=== PATIENT | male | born 1955 | race Caucasian/White ===

== ENCOUNTER 2023-07-28 09:24 | Day surgery (SDC) | payer MEDICARE, SELFPAY ==
[2023-07-13 14:40] VITALS: BMI 32.4
[2023-07-28 10:25] VITALS: BP 146/84; PULSE 79; RESP 20; TEMP 36.7; O2SAT 100
--- NOTE | 2023-07-28 10:49 | WPDANESEPPF ---
Anes - Initial Pre Proc Eval Procedure: Operation Date: 07/28/23 11:30 Proposed Procedures p Esophagogastroduodenoscopy - Stanton Pedraza MD Date/Time: 07/28/23 10:49 Surgeon: Stanton Pedraza MD Pre Op Diagnosis: Dysphagia Patient Data Age: 68 Gender: M Height: 1.83 m Weight: 108.409 kg Allergies Allergy/AdvReac Type Severity Reaction Status Date / Time No Known Allergies Allergy Verified 07/19/23 10:04 Home Medications Medication Instructions Recorded Confirmed Type cetirizine 10 mg tablet (Zyrtec) 10 mg PO DAILY PRN Allergy Symptoms 10/30/19 07/19/23 History glucosamine HCl 500 mg tablet 500 mg PO DAILY 10/30/19 07/19/23 History multivitamin 1 tablet PO DAILY 10/30/19 07/19/23 History vitamin B complex (B 1 tablet PO DAILY 10/30/19 07/19/23 History Complex-Vitamin B12 tablet) gabapentin 300 mg capsule See Rx Instructions .Route 05/10/22 07/19/23 Rx .COMPLEX #90 caps hydrocortisone 2.5 % topical See Rx Instructions .Route 07/19/22 07/19/23 Rx ointment .COMPLEX #454 grams duloxetine 60 mg capsule,delayed 60 mg PO DAILY #90 caps 06/14/23 07/19/23 Rx release (Cymbalta) warfarin 7.5 mg tablet See Rx Instructions .Route 06/28/23 07/19/23 Rx .COMPLEX #90 tabs atorvastatin 20 mg tablet See Rx Instructions .Route 07/05/23 07/19/23 Rx .COMPLEX #180 tabs ferrous sulfate 325 mg (65 mg 325 mg PO DAILY 07/05/23 07/19/23 History iron) tablet magnesium oxide 400 mg (241.3 mg 400 mg PO DAILY 07/05/23 07/19/23 History magnesium) tablet pantoprazole 40 mg tablet,delayed 40 mg PO QAM #90 tabs 07/05/23 07/19/23 Rx release zinc gluconate 30 mg tablet 30 mg PO DAILY 07/05/23 07/19/23 History Patient hx anesthesia problems: none Family hx anesthesia problems: none Results Review: All pre-operative results and documents have been reviewed as part of the pre-operative evaluation. 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 History of blood clots Surgical History Surgical History History of cholecystectomy (~2015) Family History Family History Mother Patient's mother is , Onset Age: 82 Cerebrovascular accident Father Hypertension Cerebrovascular accident Sibling Hypertension Cerebrovascular accident Social History Social History Smoking status: Former smoker Additional smoking assessment comments: quit in 1984 Alcohol intake: current Alcohol use details: a couple of drinks about 3 days a week Substance use type: does not use Lack of Transportation: No Lack of Food: Never True Current Housing: I Have Housing Concerned About Future Housing: No Difficulty Paying Gas/Electric Bills: No Difficulty Paying for Meds: No Currently Unemployed: No Education: Master's Degree or Higher Difficulty w/ Childcare or Family Care: No Living arrangements: with family Anes - Eval Final PreProcedure Day of Procedure 07/28/23 10:49 Patient weight: obese Heart: regular rate and rhythm Lungs: clear to auscultation Airway: Mallampati scale class 1 Neurological: alert and oriented Last oral intake: >/= 8 hours ASA classification: III Emergent: no Anesthetic plan: proceed Anesthesia type and monitoring: general GIVS and standard monitoring Results Review: All pre-operative results and documents have been reviewed as part of the pre-operative evaluation. Informed Consent: The patient's anesthetic plan and its attendant risks and benefits were discussed with the patient/family/POA. Questions were solicited and answers provided to the satisfaction of the patient/family/POA.
[2023-07-28] MEDS: LACTATED RINGERS 1,000 ML 150 ML IV CONT (11:01)
--- NOTE | 2023-07-28 11:03 | PM.HPGS ---
History of Present Illness History of Present Illness Consent: Risks, benefits, and alternatives have been discussed and questions answered. Patient agrees to proceed with procedure. Chief complaint: Dysphagia Narrative: Vidal Jaramillo is a 68 year old male presents for EGD. Patient reports when eating that food will pass slowly through his chest. He feels a substernal pressure. Patient denies any heartburn. He has been told that he had a hiatal hernia in the past. Family history is noncontributory. Patient denies any weight loss. Past medical history is significant for cholecystectomy. States current symptoms have been present for 1 year. Currently presents for EGD. Review of Systems Review of Systems: Review of systems is noncontributory. [facility], [facility] Past Medical History Medical History Family history of blood clots pulmonary embolism Balyne filter in place Guillain-[place] syndrome History of blood clots Surgical History Surgical History History of cholecystectomy (~2014) Family History Family History Mother Patient's mother is , Onset Age: 82 Cerebrovascular accident Father Hypertension Cerebrovascular accident Sibling Hypertension Cerebrovascular accident Social History Social History Smoking status: Former smoker Additional smoking assessment comments: quit in 1984 Alcohol intake: current Alcohol use details: a couple of drinks about 3 days a week Substance use type: does not use Lack of Transportation: No Lack of Food: Never True Current Housing: I Have Housing Concerned About Future Housing: No Difficulty Paying Gas/Electric Bills: No Difficulty Paying for Meds: No Currently Unemployed: No Education: Master's Degree or Higher Difficulty w/ Childcare or Family Care: No Living arrangements: with family Meds Home Medications and Allergies Home Medications Medication Instructions Recorded Confirmed Type cetirizine 10 mg tablet (Zyrtec) 10 mg PO DAILY PRN Allergy Symptoms 10/30/19 07/28/23 History glucosamine HCl 500 mg tablet 500 mg PO DAILY 10/30/19 07/28/23 History multivitamin 1 tablet PO DAILY 10/30/19 07/28/23 History vitamin B complex (B 1 tablet PO DAILY 10/30/19 07/28/23 History Complex-Vitamin B12 tablet) gabapentin 300 mg capsule See Rx Instructions .Route 05/10/22 07/28/23 Rx .COMPLEX #90 caps hydrocortisone 2.5 % topical See Rx Instructions .Route 07/19/22 07/28/23 Rx ointment .COMPLEX #454 grams duloxetine 60 mg capsule,delayed 60 mg PO DAILY #90 caps 06/14/23 07/28/23 Rx release (Cymbalta) warfarin 7.5 mg tablet See Rx Instructions .Route 06/28/23 07/28/23 Rx .COMPLEX #90 tabs atorvastatin 20 mg tablet See Rx Instructions .Route 07/05/23 07/28/23 Rx .COMPLEX #180 tabs ferrous sulfate 325 mg (65 mg 325 mg PO DAILY 07/05/23 07/28/23 History iron) tablet magnesium oxide 400 mg (241.3 mg 400 mg PO DAILY 07/05/23 07/28/23 History magnesium) tablet pantoprazole 40 mg tablet,delayed 40 mg PO QAM #90 tabs 07/05/23 07/28/23 Rx release zinc gluconate 30 mg tablet 30 mg PO DAILY 07/05/23 07/28/23 History Allergies Allergy/AdvReac Type Severity Reaction Status Date / Time No Known Allergies Allergy Verified 07/28/23 10:53 Vital Signs Vital Signs - 24 hr 07/28/23 10:25 Temperature 98.1 F Pulse Rate 79 Respiratory Rate 20 Blood Pressure 146/84 H Pulse Oximetry 100 Oxygen Delivery Room Air Exam Narrative: Physical exam reveals patient to be alert. Vital signs stable. HEENT exam is unremarkable. Patient is anicteric. Lungs are clear to auscultation and to percussion. Heart is without murmur or extra sounds. Abdomen bowel sounds are present soft nontender with no organom
[2023-07-28 11:28] VITALS: BP 107/73; PULSE 77; RESP 16; O2SAT 96
[2023-07-28 11:38] VITALS: BP 123/71; PULSE 68; RESP 16; O2SAT 98
--- NOTE | 2023-07-28 11:42 | WPDANESPN ---
Anes - Prog Note Post-Op Date/Time: 07/28/23 11:42 Cardiovascular status: normal Respiratory status: normal Airway patency: baseline Mental status: baseline Post-Op hydration status: normal Vital Signs: Last Vital Signs Temp 36.7 C 07/28/23 10:25 Pulse 77 07/28/23 11:28 Resp 16 07/28/23 11:28 BP 107/73 07/28/23 11:28 Pulse Ox 96 07/28/23 11:28 O2 Del Method Room Air 07/28/23 11:28 Pain Score (VAS): 0/10 I/O: Intake & Output 07/27/23 07/28/23 07/28/23 23:59 07:59 15:59 Intake Total 200 Balance 200 Patient Feedback: Patient satisfied with anesthetic care.
[2023-07-28 11:48] VITALS: BP 137/88; PULSE 62; RESP 16; O2SAT 98
== END 2023-07-28 12:04 | disposition home or self-care (01) ==
PROVIDERS: PCP Family Medicine; Visit Provider Internal Medicine Gastroenterology
PROC: 0DJ08ZZ Inspection of Upper Intestinal Tract, Via Natural or Artificial Opening Endoscopic (ICD-10-PCS; CPT 43235; principal; 2023-07-28 11:30)
DX: R13.19 Other dysphagia (principal); K44.9 Diaphragmatic hernia without obstruction or gangrene
CPT/HCPCS: 43235

== ENCOUNTER 2023-09-29 14:42 | Outpatient (CLI) | payer MEDICARE, SELFPAY ==
[2023-09-29 19:04] LABS: Basophils Absolute Auto 0.1 K/mm3 (0.0-0.1); Basophils Percent Auto 0.5 % (0.2-1.2); Eosinophils Absolute Auto 0.2 K/mm3 (0-0.3); Eosinophils Percent Auto 1.6 % (0-4.4); Hematocrit 40.7 % (42.0-52.0); Hemoglobin 13.2 g/dL (14.0-18.0); Immature Granulocyte Absolute 0.07 K/mm3 (0.00-0.031); Immature Granulocyte Percent A 0.7 % (0-0.5); Lymphocytes Absolute Auto 1.76 K/mm3 (0.9-3.2); Lymphocytes Percent Auto 16.5 % (18.3-44.2); Mean Corpuscular HGB Conc 32.4 g/dl (32-36); Mean Corpuscular Hemoglobin 31.2 pg (26-34); Mean Corpuscular Volume 96.2 fl (80-100); Mean Platelet Volume 9.3 fl (7.4-10.4); Monocytes Absolute Auto 0.8 K/mm3 (0.1-0.6); Monocytes Percent Auto 7.5 % (2.6-8.5); Neutrophils Absolute Auto 7.8 K/mm3 (1.3-6.7); Neutrophils Percent Auto 73.2 % (45.5-73.1); Platelet Count Result 226 k/mm3 (150-375); Red Blood Count 4.23 M/mm3 (4.6-6.20); White Blood Count 10.7 K/mm3 (4.5-10.0)
[2023-09-29 19:11] LABS: INR 4.1; Prothrombin Time 43.3 Seconds (11.1-14.7)
== END 2023-09-29 14:43 | disposition home or self-care (01) ==
LOC: ANHGOSHLAB 14:43
PROVIDERS: PCP Family Medicine; Visit Provider Family Medicine
DX: S80.11XA Contusion of right lower leg, initial encounter (principal); X58.XXXA Exposure to other specified factors, initial encounter
CPT/HCPCS: 36415; 85025; 85610

== ENCOUNTER 2023-10-04 12:45 | Inpatient (IN) | payer MEDICARE, SELFPAY ==
--- NOTE | ~2023-10-04 | XR_ITS ---
XR tibia fibula RT 2V 10/04/2023 13:36 INDICATION: Right leg pain PROCEDURE: 4 views right tibia/fibula COMPARISON: No prior studies for comparison. FINDINGS: Fracture, dislocation or subluxation is not identified. There is a large amount of soft tis giorgi swelling medial to the proximal fibula. If there is concern for abscess, correlation with MRI wit hout and with contrast recommended. No foreign bodies are identified. IMPRESSION: 1: NO ACUTE BONE OR JOINT ABNORMALITY IDENTIFIED. 2: Large amount of soft tissue swelling medial to the proximal fibula. If there is concern for absce ss, correlation with MRI without and with contrast recommended. Reviewed, dictated and finalized at location B. IMPRESSION: 1: NO ACUTE BONE OR JOINT ABNORMALITY IDENTIFIED. 2: Large amount of soft tissue swelling medial to the proximal fibula. If ther e is concern for abscess, correlation with MRI without and with contrast recomm ended.
[2023-10-04 12:49] VITALS: BP 139/79; PULSE 97; RESP 20; TEMP 36.3; O2SAT 100
[2023-10-04 13:40] LABS: Basophils Percent Auto 0.2 % (0.2-1.2); Eosinophils Absolute Auto 0.1 K/mm3 (0-0.3); Eosinophils Percent Auto 0.7 % (0-4.4); Hematocrit 37.4 % (42.0-52.0); Hemoglobin 12.1 g/dL (14.0-18.0); Immature Granulocyte Absolute 0.07 K/mm3 (0.00-0.031); Immature Granulocyte Percent A 0.6 % (0-0.5); Lymphocytes Absolute Auto 1.02 K/mm3 (0.9-3.2); Lymphocytes Percent Auto 8.1 % (18.3-44.2); Mean Corpuscular HGB Conc 32.4 g/dl (32-36); Mean Corpuscular Hemoglobin 30.9 pg (26-34); Mean Corpuscular Volume 95.7 fl (80-100); Mean Platelet Volume 8.9 fl (7.4-10.4); Monocytes Absolute Auto 0.9 K/mm3 (0.1-0.6); Monocytes Percent Auto 7.1 % (2.6-8.5); Neutrophils Absolute Auto 10.4 K/mm3 (1.3-6.7); Neutrophils Percent Auto 83.3 % (45.5-73.1); Platelet Count Result 267 k/mm3 (150-375); Red Blood Count 3.91 M/mm3 (4.6-6.20); Red Cell Distribution Width 14.2 % (11.5-14.5); White Blood Count 12.5 K/mm3 (4.5-10.0)
[2023-10-04 13:50] LABS: INR 1.2; Prothrombin Time 15.9 Seconds (11.1-14.7)
[2023-10-04 13:51] LABS: Partial Thromboplastin Time 36.9 Seconds (22.3-36.8)
[2023-10-04 13:55] LABS: Alanine Aminotransferase 37 U/L (6-50); Albumin Level 4.8 g/dL (3.5-5.1); Alkaline Phosphatase 139 U/L (38-126); Anion Gap 8 mmol/L (4-12); Aspartate Amino Transferase 37 U/L (17-59); Bilirubin,Total 3.3 mg/dL (0.2-1.3); Blood Urea Nitrogen 18 mg/dL (9-20); CRP 7.3 mg/dL (<1.0); Calcium 9.6 mg/dL (8.4-10.2); Carbon Dioxide 28 mmol/L (22-30); Chloride 103 mmol/L (98-107); Estimated CRCL calculation 86 ml/min; Estimated Glomerular Filt Rate > 60; Glucose 130 mg/dL (65-110); Potassium 4.1 mmol/L (3.4-5.0); Sodium 139 mmol/L (137-145)
[2023-10-04 14:23] LABS: Lactic Acid Reflex 1.8 mmol/L (0.7-2.0)
[2023-10-04] MEDS: PIPERACILLN/TAZ 3.375GM/NS50ML 3.375 GM/50 ML BAG IVPB (14:29)
--- NOTE | 2023-10-04 15:07 | ED.WOUNDLAC ---
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 The patient states approximately 1 week ago, he was walking his dog, the dog pulled him causing him to scratch his right lateral leg against a retaining wall. Since then he has developed a large bruise with swelling on the lateral aspect of the right leg and despite taking oral antibiotics has spreading redness. He states this is associated with sharp pain while standing or walking, rated 8/10. At rest he denies pain. He denies fevers, chills, shortness of breath or abdominal pain. He has no other complaints at this time. Related Data Home Medications Medication Instructions Recorded Confirmed cetirizine 10 mg tablet (Zyrtec) 10 mg PO DAILY PRN Allergy Symptoms 10/30/19 09/29/23 glucosamine HCl 500 mg tablet 500 mg PO DAILY 10/30/19 09/29/23 multivitamin 1 tablet PO DAILY 10/30/19 09/29/23 vitamin B complex (B 1 tablet PO DAILY 10/30/19 09/29/23 Complex-Vitamin B12 tablet) ferrous sulfate 325 mg (65 mg 325 mg PO DAILY 07/05/23 09/29/23 iron) tablet magnesium oxide 400 mg (241.3 mg 400 mg PO DAILY 07/05/23 09/29/23 magnesium) tablet zinc gluconate 30 mg tablet 30 mg PO DAILY 07/05/23 09/29/23 omeprazole 20 mg capsule,delayed mg PO 09/29/23 09/29/23 release Allergies Allergy/AdvReac Type Severity Reaction Status Date / Time No Known Allergies Allergy Verified 10/04/23 12:45 Review of Systems Review of Systems: CONSTITUTIONAL: Denies fever, chills, or sweats. EYES: Denies visual changes, redness, or discharge. ENT: Denies rhinorrhea, congestion, sore throat, or otalgia. CARDIOVASCULAR: Denies chest pain, palpitations, or edema. RESPIRATORY: Denies cough or dyspnea. GASTROINTESTINAL: Denies abdominal pain, nausea, vomiting, or diarrhea. GENITOURINARY: Denies dysuria or hematuria. SKIN: Erythema, swelling and induration of the right foreleg. Denies other rash or itching. MUSCULOSKELETAL: Right leg swelling and pain. Denies back pain, or myalgia. NEUROLOGIC: Denies headache, numbness, dizziness, or weakness. PSYCHIATRIC: Denies anxiety or depression. 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 History of blood clots dvt,pe 2009 Surgical History Surgical History History of cholecystectomy (~2014) Family History Family History Mother Patient's mother is , Onset Age: 82 Cerebrovascular accident Father Hypertension Cerebrovascular accident Sibling Hypertension Cerebrovascular accident Social History Social History Smoking status: Former smoker Additional smoking assessment comments: quit in 1984 Alcohol intake: current Alcohol use details: a couple of drinks about 3 days a week Substance use: never Substance use type: does not use Do You Feel Safe in your Home?: Yes Lack of Transportation: No Lack of Food: Never True Current Housing: I Have Housing Concerned About Future Housing: No Difficulty Paying Gas/Electric Bills: No Difficulty Paying for Meds: No Currently Unemployed: No Education: Master's Degree or Higher Difficulty w/ Childcare or Family Care: No Living arrangements: with family Exam Narrative: GENERAL: Well-developed, well-nourished, and in no acute distress. HEAD: Normocephalic, atraumatic. EYES: PERRLA and EOMI. CHEST: Clear to auscultation. No respiratory distress. No wh
[2023-10-04] MEDS: VANCOMYCIN 1,250 MG/NS 250 ML 1,250 MG/250 ML BAG 166.67 MG IVPB ×2 (15:26→17:00)
[2023-10-04 15:27] VITALS: BP 137/70; PULSE 74; RESP 16; O2SAT 98
[2023-10-04 16:35] VITALS: BP 161/82; PULSE 93; RESP 16; TEMP 37.1; O2SAT 98
--- NOTE | 2023-10-04 16:45 | PM.IMHP ---
H&P: HPI History of Present Illness Date/Time: 10/04/23 16:45 Chief Complaint: Hematoma Narrative: 68-year-old male with past medical history DVT/PE on Coumadin, IVC filter,, stasis dermatitis, hiatal hernia, hypercholesterolemia, history of Guillain-[place] syndrome presents with a worsening hematoma of his right lower extremity. One week prior to admission he was walking his dog and the dog pulled him into a retaining wall. A small bruise and small cut in eventually he had increasing pain. Saw his PCP on 09/28 and was prescribed cephalexin. INR was elevated so he was told to stop taking his Coumadin. He presents to [facility] ER as the hematoma has become increasingly larger warmth redness and sharp pain rated 8/10. Workup in ER demonstrated white count 91452, elevated CRP at 7.3, right tib fib x-ray demonstrating soft tissue swelling but no fracture. Gen surg consulted from ER and requested hospitalist to admit. Patient received vancomycin and Zosyn in the ER. Blood cultures and wound culture taken. In room 313 the patient denies pain currently. Review of Systems Review of Systems: All systems reviewed & are unremarkable except as noted in HPI and below (Subjective) [facility] Past Medical History Medical History Family history of blood clots pulmonary embolism [place] filter in place Guillain-Corinth syndrome History of blood clots dvt,pe 2009 Surgical History Surgical History History of cholecystectomy (~2014) Family History Family History Mother Patient's mother is , Onset Age: 82 Cerebrovascular accident Father Hypertension Cerebrovascular accident Sibling Hypertension Cerebrovascular accident Social History Social History Smoking status: Former smoker Tobacco type: cigarettes Additional smoking assessment comments: quit in 1984 Alcohol intake: current Drinks per week: 2 Alcohol use details: a couple of drinks about 3 days a week Substance use: never Substance use type: does not use Do You Feel Safe in your Home?: Yes Lack of Transportation: No Lack of Food: Never True Current Housing: I Have Housing Concerned About Future Housing: No Difficulty Paying Gas/Electric Bills: No Difficulty Paying for Meds: No Currently Unemployed: No Education: Master's Degree or Higher Difficulty w/ Childcare or Family Care: No Living arrangements: with family Spiritual care concerns: No Meds Home Medications and Allergies Home Medications Medication Instructions Recorded Confirmed Type cetirizine 10 mg tablet (Zyrtec) 10 mg PO DAILY PRN Allergy Symptoms 10/30/19 09/29/23 History glucosamine HCl 500 mg tablet 500 mg PO DAILY 10/30/19 09/29/23 History multivitamin 1 tablet PO DAILY 10/30/19 09/29/23 History vitamin B complex (B 1 tablet PO DAILY 10/30/19 09/29/23 History Complex-Vitamin B12 tablet) gabapentin 300 mg capsule See Rx Instructions .Route 05/10/22 09/29/23 Rx .COMPLEX #90 caps hydrocortisone 2.5 % topical See Rx Instructions .Route 07/19/22 09/29/23 Rx ointment .COMPLEX #454 grams duloxetine 60 mg capsule,delayed 60 mg PO DAILY #90 caps 06/14/23 09/29/23 Rx release (Cymbalta) warfarin 7.5 mg tablet See Rx Instructions .Route 06/28/23 09/29/23 Rx .COMPLEX #90 tabs ferrous sulfate 325 mg (65 mg 325 mg PO DAILY 07/05/23 09/29/23 History iron) tablet magnesium oxide 400 mg (241.3 mg 400 mg PO DAILY 07/05/23 09/29/23 History magnesium) tablet pantoprazole 40 mg tablet,delayed 40 mg PO QAM #90 tabs 07/05/23 09/29/23 Rx release zinc gluconate 30 mg tablet 30 mg PO DAILY 07/05/23 09/29/23 History atorvastatin 40 mg tablet 40 mg PO QHS #90 tabs 08/31/23 09/29/23 Rx cephalexin 500 mg capsule 500 mg PO Q12H #20
--- NOTE | 2023-10-04 16:46 | ADMGEN ---
This patient, Vidal Jaramillo, was admitted to [facility] Surg Room 313-01. Patient/family oriented to hospital policies and general routines including ID bracelet, bed and alarms, visiting hours, pain management, procedures, bathroom and other care routines, personal items, smoking policy, room service/diet, and visiting hours. Information on how to activate the Rapid Response Team has been discussed. Patient/Family are encouraged to report perceived risks to care and to ask questions if they do not understand what they are told or what they should do.
[2023-10-04] MEDS: MORPHINE SULFATE (*CRX) 2 MG/ML INJ IV PUSH (20:11)
[2023-10-04] MEDS: CEFEPIME 2 GM/NS 50 ML 2 GM/50 ML BAG IVPB (21:00)
[2023-10-04 21:13] VITALS: BP 144/81; PULSE 89; RESP 13; TEMP 36.9; O2SAT 96
[2023-10-05] VITALS (10 sets, daily range): BP systolic 123–157; BP diastolic 59–90; PULSE 71–89; RESP 12–20; TEMP 36.2–36.7; O2SAT 94–100
[2023-10-05] MEDS: VANCOMYCIN 1,500 MG/NS 500 ML 1,500 MG/500 ML BAG 250 MG IVPB ×2 (03:15→16:34)
[2023-10-05] MEDS: MORPHINE SULFATE (*CRX) 2 MG/ML INJ IV PUSH ×3 (03:16→12:16)
[2023-10-05] MEDS: CEFEPIME 2 GM/NS 50 ML 2 GM/50 ML BAG IVPB ×3 (05:47→20:43)
[2023-10-05 07:10] LABS: Basophils Percent Auto 0.2 % (0.2-1.2); Eosinophils Absolute Auto 0.1 K/mm3 (0-0.3); Eosinophils Percent Auto 1.1 % (0-4.4); Hematocrit 30.2 % (42.0-52.0); Hemoglobin 9.6 g/dL (14.0-18.0); Immature Granulocyte Absolute 0.05 K/mm3 (0.00-0.031); Immature Granulocyte Percent A 0.6 % (0-0.5); Lymphocytes Absolute Auto 1.15 K/mm3 (0.9-3.2); Lymphocytes Percent Auto 12.9 % (18.3-44.2); Mean Corpuscular HGB Conc 31.8 g/dl (32-36); Mean Corpuscular Hemoglobin 30.9 pg (26-34); Mean Corpuscular Volume 97.1 fl (80-100); Monocytes Absolute Auto 0.7 K/mm3 (0.1-0.6); Neutrophils Absolute Auto 6.9 K/mm3 (1.3-6.7); Neutrophils Percent Auto 77.2 % (45.5-73.1); Platelet Count Result 204 k/mm3 (150-375); Red Blood Count 3.11 M/mm3 (4.6-6.20); Red Cell Distribution Width 14.3 % (11.5-14.5); White Blood Count 8.9 K/mm3 (4.5-10.0)
[2023-10-05 07:31] LABS: Alanine Aminotransferase 32 U/L (6-50); Albumin Level 3.8 g/dL (3.5-5.1); Alkaline Phosphatase 110 U/L (38-126); Anion Gap 8 mmol/L (4-12); Aspartate Amino Transferase 33 U/L (17-59); Bilirubin,Total 2.8 mg/dL (0.2-1.3); Blood Urea Nitrogen 17 mg/dL (9-20); Calcium 8.8 mg/dL (8.4-10.2); Carbon Dioxide 22 mmol/L (22-30); Chloride 109 mmol/L (98-107); Estimated CRCL calculation 109 ml/min; Estimated Glomerular Filt Rate > 60; Glucose 120 mg/dL (65-110); Magnesium 2.3 mg/dL (1.6-2.3); Potassium 3.8 mmol/L (3.4-5.0); Sodium 139 mmol/L (137-145)
[2023-10-05] MEDS: PANTOPRAZOLE SODIUM IV 40 MG VIAL IV PUSH (08:36)
[2023-10-05 08:45] LABS: Procalcitonin 0.1 ng/mL
--- NOTE | 2023-10-05 13:10 | PM.CNGS ---
Assessment and Plan Assessment and plan (1) Hematoma of right lower leg: Code(s): S80.11XA - Contusion of right lower leg, initial encounter Status: Acute Assessment and Plan: Right lower leg hematoma with two areas of black eschar from pressure necrosis. The hematoma also appears to possibly be infected with some erythema and warmth extending towards the knee. We would recommend proceeding with incision and drainage of right leg hematoma in the OR by Dr. Vasquez. Description of the procedure, risks, benefits, alternatives, and expected recovery were discussed with the patient in detail. We also discussed that he will have wound care following surgery depending on what dressing changes are appropriate. Patient agrees to proceed. Continue holding his anticoagulation. He has not been using any compression, which can be added. Elevate right lower extremity when at rest. Continue IV antibiotics and we will add him onto the surgery schedule accordingly. (2) Anticoagulant long-term use: Code(s): Z79.01 - long-term (current) use of anticoagulants Status: Acute Assessment and Plan: Hold warfarin. (3) Blood clotting disorder: Code(s): D68.9 - Coagulation defect, unspecified Status: Acute Assessment and Plan: Hx multiple DVTs/PE (4) Stasis dermatitis of both legs: Code(s): I87.2 - Venous insufficiency (chronic) (peripheral) Status: Acute Assessment and Plan: Chronic venous stasis with no open wounds. Will order Eucerin per patient's request. (5) Blayne filter in place: Code(s): Z95.828 - Presence of other vascular implants and grafts Status: Acute Plan I have discussed the patient's case and plan of care with Dr. Vasquez. Thank you for allowing us to see the patient in consultation and we will continue to follow along with you. History of Present Illness Consult details Consult date: 10/05/23 Reason for consult: other (Right leg hematoma) Requesting physician: Sukumar Valerio MD Narrative: This is a 68-year-old man with history of DVT/PE on long-term warfarin therapy, who we have been asked to see in surgical consultation for a right leg hematoma. He reports hitting his right lower lateral leg on a retaining wall 9 days ago. He developed swelling in the right lower leg and saw his PCP in the office last . He was instructed to stop his warfarin and was started on cephalexin b.i.d.. He had outpatient labs that showed his INR at 4.1. He has not taken any warfarin since that appointment. He reports over the past week, this area has become more swollen and painful. He began to notice some redness spreading around the hematoma over the weekend as well. Denies any fever or chills. He presented back to his PCP and was found to have wounds over the hematoma. They instructed him to go to the ER for evaluation. Labs in the ER showed his INR was down to 1.2. White blood cell count 45056, hemoglobin 12.1, hematocrit 37.4. Right lower leg x-rays showed no acute bone or joint abnormality. Large amount of soft tissue swelling medial to the proximal fibula. He was admitted and started on IV antibiotics. He is now seen in consultation on the medical floor. He has been NPO today. Labs showed his white blood cell count down to 8,900. He denies any surgeries on this leg in the past. He denies any drainage coming from the wound. He has been ambulating last due to the severity of pain in that right leg. He is having difficulties with full extension of his right knee due to the swelling and pain. 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 Review of Systems Review of Systems: All systems reviewed & are unremarkable except as noted in HPI and below [facility] Past Medical History Medical History Family history of blood clots pulmonary embolism Blayne filter in
--- NOTE | 2023-10-05 15:24 | WPDANESEPPF ---
Anes - Initial Pre Proc Eval Procedure: Operation Date: 10/05/23 16:00 Proposed Procedures p Incision And Drainage Right Leg Hematoma - Vinny Vasquez DO Date/Time: 10/05/23 15:24 Surgeon: Lisandro Brady MD Pre Op Diagnosis: cellulitis of leg Patient Data Age: 68 Gender: M Height: 1.85 m Weight: 104 kg Last Vital Signs Temp 36.4 C 10/05/23 14:00 Pulse 82 10/05/23 14:00 Resp 13 10/05/23 14:00 BP 123/62 10/05/23 14:00 Pulse Ox 95 10/05/23 14:00 O2 Del Method Room Air 10/05/23 08:36 Allergies Allergy/AdvReac Type Severity Reaction Status Date / Time No Known Allergies Allergy Verified 10/04/23 12:45 Home Medications Medication Instructions Recorded Confirmed Type cetirizine 10 mg tablet (Zyrtec) 10 mg PO DAILY PRN Allergy Symptoms 10/30/19 10/04/23 History glucosamine HCl 500 mg tablet 500 mg PO DAILY 10/30/19 10/04/23 History multivitamin 1 tablet PO DAILY 10/30/19 10/04/23 History vitamin B complex (B 1 tablet PO DAILY 10/30/19 10/04/23 History Complex-Vitamin B12 tablet) hydrocortisone 2.5 % topical See Rx Instructions .Route 07/19/22 10/04/23 Rx ointment .COMPLEX #454 grams duloxetine 60 mg capsule,delayed 60 mg PO DAILY #90 caps 06/14/23 10/04/23 Rx release (Cymbalta) ferrous sulfate 325 mg (65 mg 325 mg PO DAILY 07/05/23 10/04/23 History iron) tablet magnesium oxide 400 mg (241.3 mg 400 mg PO DAILY 07/05/23 10/04/23 History magnesium) tablet pantoprazole 40 mg tablet,delayed 40 mg PO QAM #90 tabs 07/05/23 10/04/23 Rx release zinc gluconate 30 mg tablet 30 mg PO DAILY 07/05/23 10/04/23 History atorvastatin 40 mg tablet 40 mg PO QHS #90 tabs 08/31/23 10/04/23 Rx cephalexin 500 mg capsule 500 mg PO Q12H #20 tab-caps 09/29/23 10/04/23 Rx omeprazole 20 mg capsule,delayed 20 mg PO DAILY 09/29/23 10/04/23 History release gabapentin 300 mg capsule 300 mg PO TID 10/04/23 10/04/23 History warfarin 7.5 mg tablet 7.5 mg PO DAILY 10/04/23 10/04/23 History Laboratory Tests 10/05/23 06:27 WBC 8.9 K/mm3 (4.5-10.0) RBC 3.11 L M/mm3 (4.6-6.20) Hgb 9.6 L g/dL (14.0-18.0) Hct 30.2 L % (42.0-52.0) MCV 97.1 fl (80-100) MCH 30.9 pg (26-34) MCHC 31.8 L g/dl (32-36) RDW 14.3 % (11.5-14.5) Plt Count 204 k/mm3 (150-375) MPV 9.0 fl (7.4-10.4) Immature Gran % (Auto) 0.6 H % (0-0.5) Neut % (Auto) 77.2 H % (45.5-73.1) Lymph % (Auto) 12.9 L % (18.3-44.2) [place] % (Auto) 8.0 % (2.6-8.5) Eos % (Auto) 1.1 % (0-4.4) Baso % (Auto) 0.2 % (0.2-1.2) Lymph # (Auto) 1.15 K/mm3 (0.9-3.2) [place] # (Auto) 0.7 H K/mm3 (0.1-0.6) Eos # (Auto) 0.1 K/mm3 (0-0.3) Baso # (Auto) 0.0 K/mm3 (0.0-0.1) Abs Immat Gran (auto) 0.05 H K/mm3 (0.00-0.031) Absolute Neuts (auto) 6.9 H K/mm3 (1.3-6.7) Absolute Nucleated RBC 0.000 K/mm3 (0.0-0.012) Nucleated RBC % 0.0 % (0.0-0.2) Sodium 139 mmol/L (137-145) Potassium 3.8 mmol/L (3.4-5.0) Chloride 109 H mmol/L (98-107) Carbon Dioxide 22 mmol/L (22-30) Anion Gap 8 mmol/L (4-12) BUN 17 mg/dL (9-20) Creatinine 0.70 mg/dL (0.7-1.3) Estim Creat Clear Calc 109 ml/min Estimated GFR > 60 (59 - ) Glucose 120 H mg/dL (65-110) Calcium 8.8 mg/dL (8.4-10.2) Magnesium 2.3 mg/dL (1.6-2.3) Total Bilirubin 2.8 H mg/dL (0.2-1.3) AST 33 U/L (17-59) ALT 32 U/L (6-50) Alkaline Phosphatase 110 U/L (38-126) C-Reactive Protein 12.0 H mg/dL (<1.0) Total Protein 7.0 g/dL (6.3-8.2) Albumin 3.8 g/dL (3.5-5.1) Procalcitonin 0.1 ng/mL Patient hx anesthesia problems: none Family hx anesthesia problems: none Results Review: All pre-operative results and documents have been reviewed as part of the pre-operative evaluation. [facility] Past Medical History Medical History (Updated 10/05/23 @ 15:34 by Apolinar Blanco
--- NOTE | 2023-10-05 15:41 | PM.IMPN ---
Progress Note: A&P Assessment and Plan (1) Cellulitis of left lower extremity: Code(s): L03.116 - Cellulitis of left lower limb Status: Acute Assessment and Plan: Continue IV antibiotics, patient to go to the OR for washout of wound (2) Hematoma of right lower leg: Code(s): S80.11XA - Contusion of right lower leg, initial encounter Status: Acute Assessment and Plan: See 1. (3) Anticoagulant long-term use: Code(s): Z79.01 - termite control servicer (current) use of anticoagulants Status: Chronic Assessment and Plan: On warfarin 7.5 mg daily which is on hold. INR 1.2 this morning. Patient is previously used Lovenox to bridge back to warfarin and would prefer to do that at home upon discharge. 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 (5) Stasis dermatitis of both legs: Code(s): I87.2 - Venous insufficiency (chronic) (peripheral) Status: Chronic Assessment and Plan: Chronic, resultant from multiple clots in the past (6) Hiatal hernia: Code(s): K44.9 - Diaphragmatic hernia without obstruction or gangrene Status: Acute (7) Elevated liver enzymes: Code(s): R74.8 - Abnormal levels of other serum enzymes Status: Resolved Assessment and Plan: Resolved Plan Surgical evaluation for hematoma evacuation and washout of infected hematoma, continue IV antibiotics, anticipate Lovenox bridge to warfarin when okay with surgery Time Spent With Patient Time with patient: Greater than 35 minutes Subjective Date/time seen: 10/05/23 15:41 Interval history: Patient had minor trauma to right lower extremity is on warfarin at home was supratherapeutic. Developed an infected hematoma right lower extremity over the last 1 week. Patient was admitted for IV antibiotics and surgical evaluation for likely OR decompression and washout. Patient reports that he previously administered Lovenox injections while bridging his warfarin at home and that would be his preferred discharge plan. Patient denies to diabetes. 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 He has [place] filter in place. He also peripheral vascular disease lower extremities due to prior severe occlusive DVT the damaged his valves per patient report. Other than right lower extremity wound, patient has other acute complaints at this time. Review of Systems Review of Systems: All systems reviewed & are unremarkable except as noted in HPI and below Exam Const: General: comfortable and no acute distress Nutritional Appearance: average body habitus Orientation/consciousness: patient oriented x3 Other: A&O x3 HENMT: Head: normocephalic and atraumatic Ears: hearing grossly normal bilaterally Mouth: Yes moist mucous membranes Eyes: General: appearance normal, both eyes and all related structures Pupils: Equal, round and reactive pupils present Neck: Neck: normal visual inspection and full ROM Resp: Effort & Inspection: no respiratory distress Auscultation: clear to auscultation bilaterally Cardio: Rate: regular rate Rhythm: regular rhythm Heart sounds: S1 normal heart sound present and S2 normal heart sound present Peripheral pulses: Peripheral pulses 2+ throughout GI: Inspection: non-distended and no visible herniation GI Palp: Yes Soft to palpation, No Tenderness to palpation present (GI) and No Guarding due to palpation present (GI) Auscultation: normal bowel sounds : General: Yes bladder normal to palpation Skin: General skin exam: normal color Neuro: General: moves all extremities and no focal motor deficits Cranial nerves: Yes Equal, round and reactive pupils present Speech: normal speech Motor exam (neuro
--- NOTE | 2023-10-05 15:43 | WPDHPUPDATE1 ---
History and Physical Update Update Date/Time: 10/05/23 15:43 History and Physical has been reviewed, including an updated exam of the patient. There are NO changes in the patient's condition. Risks, benefits, and alternatives have been discussed and questions answered. Patient agrees to proceed with procedure.
[2023-10-05] MEDS: BUPIVACAINE/EPINEPHRINE 0.5% 30 ML VIAL 10 ML INFILTRATE (16:10)
[2023-10-05] MEDS: LACTATED RINGERS 1,000 ML 30 ML IV CONT (16:27)
--- NOTE | 2023-10-05 16:59 | P.OP_ITS ---
Procedure Note - Detailed Date of Procedure 10/05/23 Pre-op Diagnosis Right lower extremity traumatic hematoma Post-op Diagnosis Same Procedure Performed 1. Incision and drainage of right lower extremity traumatic hematoma 2. Sharp excisional debridement right lower extremity ulcerated skin measuring 3 cm by 2 cm and 2 cm x 2 cm Surgeon Vinny Vasquez, DO Anesthesia General and Local ( 0.5% bupivacaine with epinephrine) Indications this is a 68-year-old man who presented with a traumatic right lower extremity hematoma that he developed about 9 days ago after hitting his leg on a retaining wall. 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 He was having progressively worsening swelling to the right lower extremity to the point where the surface of the skin became ulcerated and necrotic. He was also experiencing worsening redness and pain concerning for cellulitis. Discussions were made w ith the patient about treatment options and decision was made to proceed with incision and drainage of right lower extremity hematoma. Findings Incision and drainage of the right lower extremity hematoma was performed. The patient had 2 areas of necrotic skin that were also sharply excised. I entered into the hematoma cavity through these 2 areas of necrotic skin and evacuated about 500 mL of old clotted blood. There was no active bleeding and no evidence of purulence fluid. The hematoma cavity was then packed with Betadine-soaked Kerlix gauze. No specimens were obtained for pathology. Description of Procedure Procedure as well as risks, benefits, and alternatives were discussed with the patient. Written consent was obtained and placed in chart prior to procedure. Patient was brought back to surgical suite. He was placed supine on operating table. Time-out was done to confirm patient and procedure. He was then intubated by the anesthesia department. His right lower extremity was prepped and draped in sterile fashion using Betadine prep. The hematoma was just inferior to the tibial tuberosity on the lateral right lower leg. There were 2 areas of necrotic ulcerated skin overlying the hematoma. The area was anesthetized with 0.5% bupivacaine with epinephrine. A 15 blade scalpel was then used to carefully excise the necrotic skin in the 2 locations. One area measured 3 cm x 2 cm and the other area measured 2 cm x 2 cm. The excision only involved skin. After excising this I entered into the hematoma cavity and evacuated about 500 mL of old clotted blood. The wound bed was then carefully probed for any further areas of blood clot. It was then irrigated with sterile saline. There did not appear to be any other active bleeding. No other abnormalities were noted. The wound was then packed with a 2 in Betadine-soaked Kerlix gauze through each wound opening. Fluff gauze, ABD pad, and 4 in Kerlix wrap were placed. The patient was then awakened from anesthesia, extubated, and transferred to recovery. Estimated Blood Loss 5 Urine Output 750 Packing Yes ( 2 in Kerlix gauze soaked in Betadine x2) Complications No immediate complications Condition Stable Disposition Floor [facility] Billing Surgery - Charge Forward: Surgery Billing
[2023-10-05] MEDS: oxyCODONE/ACETAMINOPHEN (*CRX) 5-325 MG TABLET 1 TABLET PO (19:43)
[2023-10-06 03:51] LABS: Basophils Percent Auto 0.1 % (0.2-1.2); Eosinophils Percent Auto 0.1 % (0-4.4); Hematocrit 30.7 % (42.0-52.0); Hemoglobin 9.9 g/dL (14.0-18.0); Immature Granulocyte Absolute 0.04 K/mm3 (0.00-0.031); Immature Granulocyte Percent A 0.5 % (0-0.5); Lymphocytes Absolute Auto 0.76 K/mm3 (0.9-3.2); Lymphocytes Percent Auto 9.2 % (18.3-44.2); Mean Corpuscular HGB Conc 32.2 g/dl (32-36); Mean Corpuscular Hemoglobin 30.7 pg (26-34); Mean Corpuscular Volume 95.3 fl (80-100); Mean Platelet Volume 8.7 fl (7.4-10.4); Monocytes Absolute Auto 0.8 K/mm3 (0.1-0.6); Monocytes Percent Auto 9.4 % (2.6-8.5); Neutrophils Absolute Auto 6.7 K/mm3 (1.3-6.7); Neutrophils Percent Auto 80.7 % (45.5-73.1); Platelet Count Result 204 k/mm3 (150-375); Red Blood Count 3.22 M/mm3 (4.6-6.20); Red Cell Distribution Width 13.9 % (11.5-14.5); White Blood Count 8.3 K/mm3 (4.5-10.0)
[2023-10-06 04:00] VITALS: BP 142/80; PULSE 73; RESP 16; TEMP 36.1; O2SAT 95
[2023-10-06 04:03] LABS: Alanine Aminotransferase 51 U/L (6-50); Albumin Level 3.8 g/dL (3.5-5.1); Alkaline Phosphatase 108 U/L (38-126); Anion Gap 5 mmol/L (4-12); Aspartate Amino Transferase 51 U/L (17-59); Blood Urea Nitrogen 16 mg/dL (9-20); Calcium 9.2 mg/dL (8.4-10.2); Carbon Dioxide 27 mmol/L (22-30); Chloride 106 mmol/L (98-107); Estimated CRCL calculation 96 ml/min; Estimated Glomerular Filt Rate > 60; Glucose 155 mg/dL (65-110); Magnesium 2.5 mg/dL (1.6-2.3); Potassium 4.4 mmol/L (3.4-5.0); Sodium 138 mmol/L (137-145)
[2023-10-06 04:25] LABS: Vancomycin Trough 9.7 ug/mL (10.0-20.0)
[2023-10-06] MEDS: VANCOMYCIN 1,500 MG/NS 500 ML 1,500 MG/500 ML BAG 200 MG IVPB ×3 (05:39→22:16)
[2023-10-06] MEDS: oxyCODONE/ACETAMINOPHEN (*CRX) 5-325 MG TABLET 1 TABLET PO ×2 (05:45→18:27)
[2023-10-06 06:00] VITALS: BP 142/85; PULSE 73; RESP 16; TEMP 36.1; O2SAT 95
[2023-10-06 08:00] VITALS: BP 132/77; PULSE 70; RESP 14; TEMP 36.5; O2SAT 99
[2023-10-06] MEDS: PANTOPRAZOLE SODIUM IV 40 MG VIAL IV PUSH (08:48)
[2023-10-06] MEDS: CEFEPIME 2 GM/NS 50 ML 2 GM/50 ML BAG IVPB ×3 (08:48→23:30)
[2023-10-06] MEDS: EUCERIN CREAM 120 GM JAR 1 APPLIC TOPICAL (08:48)
[2023-10-06] MEDS: oxyCODONE/ACETAMINOPHEN (*CRX) 10-325 MG TABLET 1 TAB PO ×2 (08:59→22:19)
--- NOTE | 2023-10-06 11:55 | PM.IMPN ---
Progress Note: A&P Assessment and Plan (1) Cellulitis of left lower extremity: Code(s): L03.116 - Cellulitis of left lower limb Status: Acute Assessment and Plan: Continue IV antibiotics, patient to go to the OR for washout of wound 10/05: Status post wound debridement hematoma evacuation per General surgery yesterday. Wound requires packing. Defer management to General surgery (2) Hematoma of right lower leg: Code(s): S80.11XA - Contusion of right lower leg, initial encounter Status: Acute Assessment and Plan: See 1. (3) Anticoagulant long-term use: Code(s): Z79.01 - [facility] (current) use of anticoagulants Status: Chronic Assessment and Plan: On warfarin 7.5 mg daily which is on hold. INR 1.2 this morning. Patient is previously used Lovenox to bridge back to warfarin and would prefer to do that at home upon discharge. 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 Possible discharge tomorrow if wound care plan gets worked out. Time Spent With Patient Time with patient: 25 - 35 minutes Subjective Date/time seen: 10/06/23 11:55 Interval history: Patient underwent operative drainage of hematoma and debridement of infected scan right lower extremity per surgery service yesterday. Dressing requires packing. Per surgery patient will be able to restart anticoagulation tomorrow. Will plan on therapeutic Lovenox dosing and re-initiation warfarin. Patient reports that is painful to try to stand or walk on the affected extremity. Review of Systems Review of Systems: All systems reviewed & are unremarkable except as noted in HPI and below Exam Const: General: comfortable, no acute distress and average body habitus Nutritional Appearance: average body habitus Orientation/consciousness: patient oriented x3 Other: A&O x3 HENMT: Head: normocephalic and atraumatic Ears: hearing grossly normal bilaterally Mouth: Yes moist mucous membranes Eyes: General: appearance normal, both eyes and all related structures Pupils: Equal, round and reactive pupils present Neck: Neck: normal visual inspection, full ROM and supple Resp: Effort & Inspection: normal respiratory effort and no respiratory distress Auscultation: clear to auscultation bilaterally Cardio: Rate: regular rate Rhythm: regular rhythm Heart sounds: S1 normal heart sound present and S2 normal heart sound present Peripheral pulses: Peripheral pulses 2+ throughout GI: Inspection: non-distended and no visible herniation Auscultation: normal bowel sounds : General: Yes bladder normal to palpation Skin: General skin exam: normal color Neuro: General: patient oriented x3, moves all extremities and no focal motor deficits Cranial nerves: Yes Equal, round and reactive pupils present Speech: normal speech Motor exam (neuro): 5/5 motor strength present throughout Extrem: Right upper extremity: normal to inspection Left upper extremity: normal to inspection Right lower extremity: foot Details: normal capillary refill, toes with normal ROM and vascular exam Details: dorsalis pedis pulse present and
--- NOTE | 2023-10-06 13:13 | WPDANESPN ---
Anes - Prog Note Post-Op Date/Time: 10/06/23 13:13 Vital Signs: Last Vital Signs Temp 36.5 C 10/06/23 08:00 Pulse 70 10/06/23 08:00 Resp 14 10/06/23 08:00 BP 132/77 10/06/23 08:00 Pulse Ox 99 10/06/23 08:00 O2 Del Method Room Air 10/06/23 08:20 O2 Flow Rate 8 10/05/23 16:27 Pain Score (VAS): 0 I/O: Intake & Output 10/05/23 10/06/23 10/06/23 23:59 07:59 15:59 Intake Total 1344 790 Output Total 1150 475 Balance 194 -475 790 Laboratory Tests 10/06/23 03:31 10/06/23 03:31 10/06/23 03:31 WBC 8.3 RBC 3.22 L Hgb 9.9 L Hct 30.7 L MCV 95.3 MCH 30.7 MCHC 32.2 RDW 13.9 Plt Count 204 MPV 8.7 Immature Gran % (Auto) 0.5 Neut % (Auto) 80.7 H Lymph % (Auto) 9.2 L [place] % (Auto) 9.4 H Eos % (Auto) 0.1 Baso % (Auto) 0.1 L Lymph # (Auto) 0.76 L [place] # (Auto) 0.8 H Eos # (Auto) 0.0 Baso # (Auto) 0.0 Abs Immat Gran (auto) 0.04 H Absolute Neuts (auto) 6.7 Absolute Nucleated RBC 0.000 Nucleated RBC % 0.0 Sodium 138 Potassium 4.4 Chloride 106 Carbon Dioxide 27 Anion Gap 5 BUN 16 Creatinine 0.80 Estim Creat Clear Calc 96 Estimated GFR > 60 Glucose 155 H Calcium 9.2 Magnesium 2.5 H Total Bilirubin 2.0 H AST 51 ALT 51 H Alkaline Phosphatase 108 Total Protein 7.0 Albumin 3.8 Vancomycin Trough 9.7 L Microbiology 10/04/23 14:37 Leg Right Wound Culture - Preliminary 10/04/23 13:34 Blood Blood Culture - Preliminary 10/04/23 13:40 Blood Blood Culture - Preliminary Patient Feedback: Patient satisfied with anesthetic care.
[2023-10-06 14:00] VITALS: BP 145/77; PULSE 82; RESP 14; TEMP 36.4; O2SAT 99
--- NOTE | 2023-10-06 15:00 | PM.PNGS ---
Progress Note: A&P Assessment and Plan (1) Hematoma of right lower leg: Code(s): S80.11XA - Contusion of right lower leg, initial encounter Status: Acute Assessment and Plan: Postop day 1 I&D right leg hematoma, debridement right lower leg ulcerated skin Dressing changed and looks good today. Wound is dry. Will start silver gel with 2 iodoform packing to be changed daily. CC will work on setting up home health for dressing changes. Patient will also speak with a neighbor and his in regards to helping with dressing changes at home. 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 Vasquez. Subjective Subjective Date/Time Seen: 10/06/23 15:00 Patient reports: no new complaints and afebrile Interval history: Patient did well overnight. Right leg pain is better with less pressure, feels he has the most pain in his posterior calf where there is still some swelling. Exam Narrative: Dressing and packing removed. Right lateral calf wound dry with no areas of bleeding. Surrounding erythema and swelling improved. Objective Data Vital Signs Vital Signs: Vital Signs - 24 hr 10/05/23 16:27 10/05/23 16:40 10/05/23 16:55 Temperature 97.2 F L Pulse Rate 80 79 71 Respiratory Rate 12 12 12 Blood Pressure 150/80 H 154/84 H 157/71 H Pulse Oximetry 100 99 98 Oxygen Delivery Simple Face Mask Room Air Room Air Oxygen Flow Rate 8 10/05/23 17:10 10/05/23 17:23 10/05/23 18:10 Temperature 97.3 F L Pulse Rate 87 87 86 Respiratory Rate 14 16 15 Blood Pressure 157/88 H 155/90 H 146/68 H Pulse Oximetry 96 97 98 Oxygen Delivery Room Air Room Air Oxygen Flow Rate 04/24/24 22:00 10/06/23 04:00 10/06/23 06:00 Temperature 98.0 F 97.0 F L 97.0 F L Pulse Rate 89 73 73 Respiratory Rate 20 16 16 Blood Pressure 135/76 142/80 H 142/85 H Pulse Oximetry 96 95 95 Oxygen Delivery Oxygen Flow Rate 10/06/23 08:00 10/06/23 08:20 10/06/23 14:00 Temperature 97.7 F 97.6 F Pulse Rate 70 82 Respiratory Rate 14 14 Blood Pressure 132/77 145/77 H Pulse Oximetry 99 99 Oxygen Delivery Room Air Oxygen Flow Rate Intake/Output Intake/Output: Intake & Output 10/03/23 10/04/23 10/05/23 10/06/23 23:59 23:59 23:59 23:59 Intake Total 340 2194 958 Output Total 1900 475 Balance 340 294 483 Meds/Results Medications: Active Medications Generic Name Dose Route Start Last Admin Trade Name Freq PRN Reason Stop Dose Admin Acetaminophen 650 mg 10/04/23 15:05 Acetaminophen 325 Mg Tablet PO Q4H PRN Mild Pain (1-3) or Fever Cefepime HCl 2 gm in 50 mls @ 100 mls/hr 10/04/23 22:00 10/06/23 13:36 Maxipime 2 Gm/Ns 50 Ml IVPB Infused Q8H TC Infusion Vancomycin HCl 1,500 mg in 500 mls @ 250 mls/hr 10/06/23 05:00 10/06/23 13:56 Vancomycin 1,500 Mg/Ns 500 Ml IVPB 200 mls/hr Q8H TC Administration Morphine Sulfate 2 mg 10/05/23 17:25 Morphine Sulfate (*Crx) 2 Mg/Ml Inj IV PUSH Q2H PRN Breakthrough Pain Rated 4-6 or NPO Morphine Sulfate 4 mg 10/05/23 17:25 Morphine Sulfate (*Crx) 4 Mg/Ml Inj IV PUSH Q2H PRN Breakthrough Pain Rated 7-10 or NPO Multi-Ingred Cream/Lotion/Oil/Oint 1 applic 10/05/23 11:10 10/06/23 08:48 Eucerin Cream 120 Gm Jar TOPICAL 1 applic DAILY TC Administration Ondansetron HCl 4 mg 10/05/23 17:25 Ondansetron Inj 4 Mg
[2023-10-06] MEDS: MORPHINE SULFATE (*CRX) 4 MG/ML INJ IV PUSH (15:46)
[2023-10-06 21:16] VITALS: BP 163/78; PULSE 91; RESP 14; TEMP 36.5; O2SAT 98
[2023-10-07 05:40] LABS: Basophils Percent Auto 0.4 % (0.2-1.2); Eosinophils Absolute Auto 0.2 K/mm3 (0-0.3); Eosinophils Percent Auto 2.5 % (0-4.4); Hematocrit 35.6 % (42.0-52.0); Hemoglobin 10.8 g/dL (14.0-18.0); Immature Granulocyte Absolute 0.02 K/mm3 (0.00-0.031); Immature Granulocyte Percent A 0.3 % (0-0.5); Lymphocytes Absolute Auto 1.63 K/mm3 (0.9-3.2); Lymphocytes Percent Auto 21.2 % (18.3-44.2); Mean Corpuscular HGB Conc 30.3 g/dl (32-36); Mean Corpuscular Hemoglobin 31.1 pg (26-34); Mean Corpuscular Volume 102.6 fl (80-100); Mean Platelet Volume 8.8 fl (7.4-10.4); Monocytes Absolute Auto 0.8 K/mm3 (0.1-0.6); Monocytes Percent Auto 10.7 % (2.6-8.5); Neutrophils Percent Auto 64.9 % (45.5-73.1); Platelet Count Result 214 k/mm3 (150-375); Red Blood Count 3.47 M/mm3 (4.6-6.20); Red Cell Distribution Width 13.8 % (11.5-14.5); White Blood Count 7.7 K/mm3 (4.5-10.0)
[2023-10-07] MEDS: oxyCODONE/ACETAMINOPHEN (*CRX) 10-325 MG TABLET 1 TAB PO ×3 (05:45→20:50)
[2023-10-07] MEDS: CEFEPIME 2 GM/NS 50 ML 2 GM/50 ML BAG IVPB (05:46)
[2023-10-07 05:55] VITALS: BP 132/72; PULSE 60; RESP 14; TEMP 36.4; O2SAT 97
[2023-10-07 06:02] LABS: Alanine Aminotransferase 64 U/L (6-50); Albumin Level 3.2 g/dL (3.5-5.1); Alkaline Phosphatase 99 U/L (38-126); Anion Gap 4 mmol/L (4-12); Aspartate Amino Transferase 58 U/L (17-59); Bilirubin,Total 1.4 mg/dL (0.2-1.3); Blood Urea Nitrogen 15 mg/dL (9-20); Calcium 8.4 mg/dL (8.4-10.2); Carbon Dioxide 26 mmol/L (22-30); Chloride 108 mmol/L (98-107); Estimated CRCL calculation 125 ml/min; Estimated Glomerular Filt Rate > 60; Glucose 94 mg/dL (65-110); Magnesium 2.1 mg/dL (1.6-2.3); Potassium 4.2 mmol/L (3.4-5.0); Sodium 138 mmol/L (137-145); Vancomycin Trough 15.9 ug/mL (10.0-20.0)
[2023-10-07] MEDS: VANCOMYCIN 1,500 MG/NS 500 ML 1,500 MG/500 ML BAG 200 MG IVPB (06:54)
--- NOTE | 2023-10-07 08:09 | PM.PNGS ---
Progress Note: A&P Assessment and Plan (1) Hematoma of right lower leg: Code(s): S80.11XA - Contusion of right lower leg, initial encounter Status: Acute Assessment and Plan: Continue packing changes with silver gel with 2 iodoform packing to be changed daily. CC will work on setting up home health for dressing changes. Patient will also speak with a neighbor and his in regards to helping with dressing changes at home. Possibly home in the next 1-2 days once wound care at home is finalized. 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 Monitor for any recurrent bleeding. (3) Blood clotting disorder: Code(s): D68.9 - Coagulation defect, unspecified Status: Acute (4) Stasis dermatitis of both legs: Code(s): I87.2 - Venous insufficiency (chronic) (peripheral) Status: Chronic (5) [place] filter in place: Code(s): Z95.828 - Presence of other vascular implants and grafts Status: Chronic Subjective Subjective Date/Time Seen: 10/07/23 08:09 Interval history: Doing well. Pain controlled. Tolerating dressing changes. Exam Narrative: Dressing and packing removed. Right lateral calf wound dry with no areas of bleeding. Surrounding erythema and swelling improved. Objective Data Vital Signs Vital Signs: Vital Signs - 24 hr 10/06/23 08:20 10/06/23 14:00 10/06/23 21:16 Temperature 36.4 C 36.5 C Pulse Rate 82 91 Respiratory Rate 14 14 Blood Pressure 145/77 H 163/78 H Pulse Oximetry 99 98 Oxygen Delivery Room Air 10/07/23 05:55 Temperature 36.4 C L Pulse Rate 60 Respiratory Rate 14 Blood Pressure 132/72 Pulse Oximetry 97 Oxygen Delivery Intake/Output Intake/Output: Intake & Output 10/04/23 10/05/23 10/06/23 10/07/23 23:59 23:59 23:59 23:59 Intake Total 340 2194 1938 1050 Output Total 1900 1225 1150 Balance 340 294 713 -100 Meds/Results Medications: Active Medications Generic Name Dose Route Start Last Admin Trade Name Freq PRN Reason Stop Dose Admin Acetaminophen 650 mg 04/23/24 15:05 Acetaminophen 325 Mg Tablet PO Q4H PRN Mild Pain (1-3) or Fever Enoxaparin Sodium 100 mg 10/07/23 08:00 Enoxaparin 100 Mg/Ml Syringe SUB-Q Q12H PENDING SALE TO [facility] Cefepime HCl 2 gm in 50 mls @ 100 mls/hr 10/04/23 22:00 10/07/23 05:46 Maxipime 2 Gm/Ns 50 Ml IVPB 100 mls/hr Q8H PENDING SALE TO [facility] Administration Vancomycin HCl 1,500 mg in 500 mls @ 250 mls/hr 10/06/23 05:00 10/07/23 06:54 Vancomycin 1,500 Mg/Ns 500 Ml IVPB 200 mls/hr Q8H TC Administration Morphine Sulfate 2 mg 10/05/23 17:25 Morphine Sulfate (*Crx) 2 Mg/Ml Inj IV PUSH Q2H PRN Breakthrough Pain Rated 4-6 or NPO Morphine Sulfate 4 mg 10/05/23 17:25 10/06/23 15:46 Morphine Sulfate (*Crx) 4 Mg/Ml Inj IV PUSH 4 mg Q2H PRN Administration Breakthrough Pain Rated 7-10 or NPO Multi-Ingred Cream/Lotion/Oil/Oint 1 applic 10/05/23 11:10 10/06/23 08:48 Eucerin Cream 120 Gm Jar TOPICAL 1 applic DAILY PENDING SALE TO [facility] Administration Ondansetron HCl 4 mg 10/05/23 17:25 Ondansetron Inj 4 Mg/2 Ml Vial IV PUSH Q4H PRN Nausea And Vomiting Oxycodone/Acetaminophen 1 tab 10/05/23 17:25 10/07/23 05:45 Oxycodone/Acetaminophen (*Crx) 10-325 Mg Tablet PO 1 tab Q6H PRN Administration Pain Rated 7-10 Oxycodone/Acetaminophen 1 tablet 10/05/23 17:25 10/06/23 18:27 Oxycodone/Acetaminophen (*Crx) 5-325 Mg Tablet PO 1 tablet Q4H PRN Administration Pain Rated 4-6 Pantoprazole Sodium 40 mg 10/07/23 09:00 Pantoprazole 40 Mg Tablet PO QAM PENDING SALE TO [facility] Warfarin Sodium 7.5 mg 10/07/23 17:00 Warfarin (*Pbkc) 7.5 Mg Tablet PO DAILY@1700 PENDING SALE TO [facility] Radiology Results: ITS Impressions Tibia/Fibula X-Ray 10/04/23 13:39 IMPRESSION: 1: NO ACUTE BONE
[2023-10-07] MEDS: ENOXAPARIN 100 MG/ML SYRINGE SUB-Q ×2 (08:29→20:45)
[2023-10-07] MEDS: PANTOPRAZOLE 40 MG TABLET PO (08:29)
[2023-10-07] MEDS: EUCERIN CREAM 120 GM JAR 1 APPLIC TOPICAL (08:29)
[2023-10-07 08:46] VITALS: O2SAT 96
--- NOTE | 2023-10-07 10:08 | PM.IMPN ---
Progress Note: A&P Assessment and Plan (1) Cellulitis of left lower extremity: Code(s): L03.116 - Cellulitis of left lower limb Status: Acute Assessment and Plan: Continue IV antibiotics, patient to go to the OR for washout of wound 10/05: Status post wound debridement hematoma evacuation per General surgery yesterday. Wound requires packing. Defer management to General surgery 10/06: Antibiotics de-escalated to Keflex and doxycycline. Anticoagulation restarted today with Lovenox bridge to Coumadin with daily INRs. General surgery wants patient to stay admitted 2 more days to make sure he does not reaccumulate blood after resumption of anticoagulation. (2) Hematoma of right lower leg: Code(s): S80.11XA - Contusion of right lower leg, initial encounter Status: Acute Assessment and Plan: See 1. (3) Anticoagulant long-term use: Code(s): Z79.01 - [facility] (current) use of anticoagulants Status: Chronic Assessment and Plan: On warfarin 7.5 mg daily which is on hold. INR 1.2 this morning. Patient is previously used Lovenox to bridge back to warfarin and would prefer to do that at home upon discharge. 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 Possible discharge tomorrow if wound care plan gets worked out. Time Spent With Patient Time with patient: 25 - 35 minutes Subjective Date/time seen: 10/07/23 10:08 Interval history: General surgery saw patient today he wants him to remain in the hospital until Tuesday as we reinitiate anticoagulation. Patient continues to require packing of wounds and monitoring for rebleeding with initiation anticoagulation. Surgery okay with deescalation of antibiotics to oral or even stopping antibiotic therapy. For now we will deescalate to Keflex and doxycycline oral. Patient received crutches and crutch training today for assistance in mobilizing. Review of Systems Review of Systems: All systems reviewed & are unremarkable except as noted in HPI and below Exam Const: General: comfortable, no acute distress and average body habitus Nutritional Appearance: average body habitus Orientation/consciousness: patient oriented x3 Other: A&O x3 HENMT: Head: normocephalic and atraumatic Ears: hearing grossly normal bilaterally Mouth: Yes moist mucous membranes Eyes: General: appearance normal, both eyes and all related structures Pupils: Equal, round and reactive pupils present Neck: Neck: normal visual inspection, full ROM and supple Resp: Effort & Inspection: normal respiratory effort and no respiratory distress Auscultation: clear to auscultation bilaterally Cardio: Rate: regular rate Rhythm: regular rhythm Heart sounds: S1 normal heart sound present and S2 normal heart sound present Peripheral pulses: Peripheral pulses 2+ throughout GI: Inspection: non-distended and no visible herniation Auscultation: normal bowel sounds : General: Yes bladder normal to palpation Skin: General skin exam: normal color Neuro: General: patient oriented x3, moves all extremities and no focal motor deficits Cranial nerves: Yes Equal, round and reactive pupils present Speech: normal speech Motor exam (neuro): 5/5 motor strength present throughout Extrem: Right upper extremity: normal to inspection
[2023-10-07] MEDS: CEPHALEXIN 500 MG CAPSULE PO ×2 (13:11→17:02)
[2023-10-07] MEDS: DOXYCYCLINE HYCLATE 100 MG TABLET PO ×2 (13:11→20:45)
[2023-10-07 14:00] VITALS: BP 161/80; PULSE 86; RESP 16; TEMP 37.1; O2SAT 98
[2023-10-07] MEDS: WARFARIN (*PBKC) 7.5 MG TABLET PO (17:02)
[2023-10-07 21:15] VITALS: BP 135/50; PULSE 76; RESP 16; TEMP 36.6; O2SAT 97
[2023-10-08] MEDS: CEPHALEXIN 500 MG CAPSULE PO ×4 (00:17→16:59)
[2023-10-08 04:50] VITALS: BP 140/56; PULSE 71; RESP 16; TEMP 37; O2SAT 98
[2023-10-08 05:38] LABS: Basophils Percent Auto 0.5 % (0.2-1.2); Eosinophils Absolute Auto 0.2 K/mm3 (0-0.3); Eosinophils Percent Auto 3.2 % (0-4.4); Hematocrit 30.5 % (42.0-52.0); Hemoglobin 9.8 g/dL (14.0-18.0); Immature Granulocyte Absolute 0.04 K/mm3 (0.00-0.031); Immature Granulocyte Percent A 0.6 % (0-0.5); Lymphocytes Absolute Auto 1.52 K/mm3 (0.9-3.2); Lymphocytes Percent Auto 24.3 % (18.3-44.2); Mean Corpuscular HGB Conc 32.1 g/dl (32-36); Mean Corpuscular Hemoglobin 31.2 pg (26-34); Mean Corpuscular Volume 97.1 fl (80-100); Mean Platelet Volume 8.7 fl (7.4-10.4); Monocytes Absolute Auto 0.6 K/mm3 (0.1-0.6); Monocytes Percent Auto 9.9 % (2.6-8.5); Neutrophils Absolute Auto 3.8 K/mm3 (1.3-6.7); Neutrophils Percent Auto 61.5 % (45.5-73.1); Platelet Count Result 209 k/mm3 (150-375); Red Blood Count 3.14 M/mm3 (4.6-6.20); White Blood Count 6.3 K/mm3 (4.5-10.0)
[2023-10-08 05:49] LABS: INR 1.1
[2023-10-08 05:54] LABS: Alanine Aminotransferase 68 U/L (6-50); Albumin Level 3.4 g/dL (3.5-5.1); Alkaline Phosphatase 109 U/L (38-126); Anion Gap 3 mmol/L (4-12); Aspartate Amino Transferase 51 U/L (17-59); Bilirubin,Total 1.4 mg/dL (0.2-1.3); Blood Urea Nitrogen 13 mg/dL (9-20); Calcium 8.6 mg/dL (8.4-10.2); Carbon Dioxide 28 mmol/L (22-30); Chloride 105 mmol/L (98-107); Estimated CRCL calculation 125 ml/min; Estimated Glomerular Filt Rate > 60; Glucose 96 mg/dL (65-110); Potassium 3.5 mmol/L (3.4-5.0); Sodium 136 mmol/L (137-145)
[2023-10-08] MEDS: PANTOPRAZOLE 40 MG TABLET PO (08:28)
[2023-10-08] MEDS: DOXYCYCLINE HYCLATE 100 MG TABLET PO ×2 (08:28→20:29)
[2023-10-08] MEDS: ENOXAPARIN 100 MG/ML SYRINGE SUB-Q ×2 (08:28→20:29)
[2023-10-08] MEDS: EUCERIN CREAM 120 GM JAR 1 APPLIC TOPICAL (08:29)
[2023-10-08] MEDS: oxyCODONE/ACETAMINOPHEN (*CRX) 5-325 MG TABLET 1 TABLET PO ×2 (09:46→15:26)
--- NOTE | 2023-10-08 11:16 | PM.PNGS ---
Progress Note: A&P Assessment and Plan (1) Hematoma of right lower leg: Code(s): S80.11XA - Contusion of right lower leg, initial encounter Status: Acute Assessment and Plan: Hematoma evacuated and resultant 2 open wounds are clean but healing slowly. Explained to the patient that with the venous stasis changes of his leg, these will heal very slowly. Discussed discharge plans with hospitalist. Plan is to go home tomorrow bridging with therapeutic dose of Lovenox until his warfarin dose it has a chance to be therapeutic. He will continue wound dressing changes to the 2 open wounds on his right leg to consist of silver gel, 2 in iodoform Nu gauze, ABDs, wrap with Kerlix, wrap with 4 in Baljeet wrap. Home health has been arranged to facilitate the wound care. Wound and blood cultures were both negative. (2) Stasis dermatitis of both legs: Code(s): I87.2 - Venous insufficiency (chronic) (peripheral) Status: Chronic Assessment and Plan: Severe, right leg painful (3) Anticoagulant long-term use: Code(s): Z79.01 - ferry terminal supervisor (current) use of anticoagulants Status: Chronic Assessment and Plan: Receiving warfarin but will have bridging therapeutic dose of enoxaparin on discharge as discussed above. Subjective Subjective Date/Time Seen: 10/08/23 11:16 Patient reports: afebrile and other (Complains of pruritus but otherwise no complaints. Seems to be mostly his legs.) Review of Systems Review of Systems: All systems reviewed & are unremarkable except as noted in HPI and below (HPI) Exam Const: General: comfortable and no acute distress Orientation/consciousness: patient oriented x3 Neuro: General: patient oriented x3 and no focal motor deficits Extrem: Right lower extremity: lower leg (Lipodermatosclerosis, severe. No edema noted) Details: tenderness, no edema and other (2 wounds from hematoma drainage, no sign infection, healing adequately); no ecchymosis, no crepitus and no unusual warmth Left lower extremity: lower leg (Severe lipodermatosclerosis, no edema, no open wounds.) Details: no edema; no erythema and no crepitus Psych: Affect: normal affect Insight: Good insight present (Psych) Judgement: Good judgement present (Psych) Objective Data Vital Signs Vital Signs: Vital Signs - 24 hr 10/07/23 14:09 10/07/23 14:00 10/07/23 21:15 Temperature 37.1 C 36.6 C Pulse Rate 86 76 Respiratory Rate 16 16 Blood Pressure 161/80 H 135/50 L Pulse Oximetry 98 97 Oxygen Delivery Room Air 10/08/23 04:50 Temperature 37.0 C Pulse Rate 71 Respiratory Rate 16 Blood Pressure 140/56 L Pulse Oximetry 98 Oxygen Delivery Intake/Output Intake/Output: Intake & Output 10/05/23 10/06/23 10/07/23 10/08/23 23:59 23:59 23:59 23:59 Intake Total 2194 1938 2026 684 Output Total 1900 1225 220 1122 Balance 294 032 -301 -458 Meds/Results Medications: Active Medications Generic Name Dose Route Start Last Admin Trade Name Freq PRN Reason Stop Dose Admin Acetaminophen 650 mg 10/04/23 15:05 Acetaminophen 325 Mg Tablet PO Q4H PRN Mild Pain (1-3) or Fever Cephalexin HCl 500 mg 10/07/23 12:00 10/08/23 05:46 Cephalexin 500 Mg Capsule PO 500 mg Q6HR TC Administration Doxycycline Hyclate 100 mg 10/07/23 12:00 10/08/23 08:28 Doxycycline Hyclate 100 Mg Tablet PO 100 mg Q12HR TC Administration Enoxaparin Sodium 100 mg 10/07/23 08:00 10/08/23 08:28 Enoxaparin 100 Mg/Ml Syringe SUB-Q 100 mg Q12H TC Administration Morphine Sulfate 2 mg 10/05/23 17:25 Morphine Sulfate (*Crx) 2 Mg/Ml Inj IV PUSH Q2H PRN Breakthrough Pain Rated 4-6 or NPO Morphine Sulfate 4 mg 10/05/23 17:25 10/06/23 15:46 Morphine Sulfate (*Crx) 4 Mg/Ml Inj IV PUSH 4 mg Q2H PRN Administration Breakthrough Pain Rated 7-10 or NPO Multi-Ingred Cream/Lotion/Oil/Oint 1 applic 10/05/23 11:10 10/08/23 08:29 Eucerin Cream 1
--- NOTE | 2023-10-08 11:17 | PM.IMPN ---
Progress Note: A&P Assessment and Plan (1) Cellulitis of left lower extremity: Code(s): L03.116 - Cellulitis of left lower limb Status: Acute Assessment and Plan: Continue IV antibiotics, patient to go to the OR for washout of wound 10/05: Status post wound debridement hematoma evacuation per General surgery yesterday. Wound requires packing. Defer management to General surgery 10/06: Antibiotics de-escalated to Keflex and doxycycline. Anticoagulation restarted today with Lovenox bridge to Coumadin with daily INRs. General surgery wants patient to stay admitted 2 more days to make sure he does not reaccumulate blood after resumption of anticoagulation. 10/07: Improving postoperatively. Continue Keflex and doxycycline for total of 7 days antibiotic treatment has agreed by surgery and Infectious Disease pharmacy. Cultures with no growth. Daily dressing changes with 2 in iodoform and silver gel. (2) Hematoma of right lower leg: Code(s): S80.11XA - Contusion of right lower leg, initial encounter Status: Acute Assessment and Plan: See 1. (3) Anticoagulant long-term use: Code(s): Z79.01 - intermodal dispatcher (current) use of anticoagulants Status: Chronic Assessment and Plan: On warfarin 7.5 mg daily which is on hold. INR 1.2 this morning. Patient is previously used Lovenox to bridge back to warfarin and would prefer to do that at home upon discharge. 10/05: Per surgery, OK to resume anticoagulation tomorrow 10/06: Therapeutic Lovenox and re-initiation of warfarin at 7.5 mg per day with daily INR ordered 10/07: Continue Lovenox and warfarin with daily INR, discharge plan includes prescription for Lovenox and daily INR with results to primary care. 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 Continue bridge to warfarin using Lovenox. Discharge plan tomorrow. Home health will see patient on Tuesday Time Spent With Patient Time with patient: Greater than 35 minutes Subjective Date/time seen: 10/08/23 11:17 Interval history: Pain and swelling are improving to the right lower leg. Daily dressing changes per surgery order. Surgery took down dressings for better evaluation today. Surrounding cellulitis appears to be resolving. Will continue oral antibiotics for total of 7 days treatment. In the process of bridging back to warfarin using Lovenox. Plan to discharge tomorrow with prescription for Lovenox and instructions to get labs drawn with results to primary care Dr. Andersen. Review of Systems Review of Systems: All systems reviewed & are unremarkable except as noted in HPI and below Exam Narrative: GENERAL: no acute distress. HEAD: Normocephalic, atraumatic. ENT:? Mucous membranes moist. CHEST: Clear to auscultation.? No respiratory distress. HEART: Regular rate and rhythm. ? Normal peripheral pulses. ABDOMEN: Soft, nontender, nondistended. EXTREMITIES: Normal range of motion. Chronic bilateral lower extremity peripheral vascular disease prominent with dryness and scaling. Right lower extremity 2 circular surgical wounds with improving surrounding erythema, serosanguineous drainage present reaccumulation hematoma. SKIN: Warm dry normal color NEURO: Alert and oriented x3. PSYCH: Normal mood and affect Objective Data Vital Signs Vital Signs: Vital Signs - 24 hr 10/07/23 14:09 10/07/23 14:00 10/07/23 21:15 Temperature 37.1 C 36.6 C Pulse Rate 86 76 Respiratory Rate 16 16 Blood Pressure 161/80 H 135/50 L Pulse Ox
[2023-10-08 14:00] VITALS: BP 125/71; PULSE 91; RESP 20; TEMP 36.7; O2SAT 98
[2023-10-08] MEDS: WARFARIN (*PBKC) 7.5 MG TABLET PO (16:19)
[2023-10-08 20:45] VITALS: BP 126/87; PULSE 80; RESP 16; TEMP 36.9; O2SAT 99
[2023-10-09] MEDS: CEPHALEXIN 500 MG CAPSULE PO ×2 (00:19→06:29)
[2023-10-09 05:00] VITALS: BP 133/72; PULSE 80; RESP 18; TEMP 36.8; O2SAT 97
[2023-10-09] MEDS: oxyCODONE/ACETAMINOPHEN (*CRX) 5-325 MG TABLET 1 TABLET PO (06:31)
[2023-10-09 06:48] LABS: Basophils Percent Auto 0.6 % (0.2-1.2); Eosinophils Absolute Auto 0.2 K/mm3 (0-0.3); Hematocrit 32.3 % (42.0-52.0); Hemoglobin 10.1 g/dL (14.0-18.0); Immature Granulocyte Absolute 0.07 K/mm3 (0.00-0.031); Lymphocytes Percent Auto 23.8 % (18.3-44.2); Mean Corpuscular HGB Conc 31.3 g/dl (32-36); Mean Corpuscular Hemoglobin 30.2 pg (26-34); Mean Corpuscular Volume 96.7 fl (80-100); Mean Platelet Volume 8.5 fl (7.4-10.4); Monocytes Absolute Auto 0.6 K/mm3 (0.1-0.6); Monocytes Percent Auto 8.2 % (2.6-8.5); Neutrophils Absolute Auto 4.3 K/mm3 (1.3-6.7); Neutrophils Percent Auto 63.4 % (45.5-73.1); Platelet Count Result 257 k/mm3 (150-375); Red Blood Count 3.34 M/mm3 (4.6-6.20); Red Cell Distribution Width 13.9 % (11.5-14.5); White Blood Count 6.7 K/mm3 (4.5-10.0)
[2023-10-09 06:59] LABS: INR 1.1; Prothrombin Time 14.9 Seconds (11.1-14.7)
[2023-10-09 07:03] LABS: Alanine Aminotransferase 70 U/L (6-50); Albumin Level 3.9 g/dL (3.5-5.1); Alkaline Phosphatase 125 U/L (38-126); Anion Gap 5 mmol/L (4-12); Aspartate Amino Transferase 49 U/L (17-59); Bilirubin,Total 1.5 mg/dL (0.2-1.3); Blood Urea Nitrogen 15 mg/dL (9-20); Calcium 9.2 mg/dL (8.4-10.2); Carbon Dioxide 29 mmol/L (22-30); Chloride 106 mmol/L (98-107); Estimated CRCL calculation 109 ml/min; Estimated Glomerular Filt Rate > 60; Glucose 105 mg/dL (65-110); Magnesium 2.2 mg/dL (1.6-2.3); Potassium 4.1 mmol/L (3.4-5.0); Sodium 140 mmol/L (137-145)
[2023-10-09] MEDS: DOXYCYCLINE HYCLATE 100 MG TABLET PO (09:46)
[2023-10-09] MEDS: PANTOPRAZOLE 40 MG TABLET PO (09:46)
[2023-10-09] MEDS: EUCERIN CREAM 120 GM JAR 1 APPLIC TOPICAL (09:47)
[2023-10-09] MEDS: ENOXAPARIN 100 MG/ML SYRINGE SUB-Q (09:49)
--- NOTE | 2023-10-09 10:39 | PM.DS ---
DS: Admitting Diagnosis Discharge Date 10/09/2023 Admitting Diagnosis [place] filter in place, stasis dermatitis of both legs, hiatal hernia, cellulitis of left lower extremity, hematoma right leg, elevated liver enzymes DS: Discharge Diagnosis Discharge Diagnosis (1) Hematoma of right lower leg: Code(s): S80.11XA - Contusion of right lower leg, initial encounter Status: Acute (2) Anticoagulant long-term use: Code(s): Z79.01 - [facility] (current) use of anticoagulants Status: Chronic (3) [place] filter in place: Code(s): Z95.828 - Presence of other vascular implants and grafts Status: Chronic (4) Stasis dermatitis of both legs: Code(s): I87.2 - Venous insufficiency (chronic) (peripheral) Status: Chronic (5) Cellulitis of right lower extremity: Code(s): L03.115 - Cellulitis of right lower limb Status: Acute DS: Summary Hospital Course Hospital Course: This is a 68-year-old male patient who was admitted to the hospital for cellulitis and infected hematoma right extremity. Patient is warfarin due to genetic predisposition for clotting. He had minor trauma to his right leg and subsequently developed significant swelling erythema warmth and tenderness. Patient was admitted on IV antibiotics and warfarin was held. General surgery was consulted and patient to the operating room hematoma evacuation drainages as excision necrotic areas on right lower extremity. This ultimately cultured negative. IV antibiotics were changed to oral to complete a 7 day course. It when approved by surgery patient was started on Lovenox and Coumadin. He has prior experience with bridging at home. Wound care was completed today and he is set up for home health as of tomorrow. Patient has dressing change daily ordered. Prescription for Lovenox, pain medication and oral antibiotics to complete 7 day course were written. INR was still 1.1 this morning after 2 days on Coumadin. Written order for call patient INR q.48h to start tomorrow. Results to go to primary care and patient will notify primary care provider. Status at Discharge Cognitive/behavioral status at discharge: awake alert oriented pleasant Functional status at discharge: uses cane/walker Overall status at discharge: patient is progressing back to baseline Time Spent with Patient Time attestation: Total time spent providing and/or coordinating discharge services: 35 minutes Time spent: Greater than 30 minutes Exam Narrative: GENERAL: no acute distress. HEAD: Normocephalic, atraumatic. ENT:? Mucous membranes moist. CHEST: Clear to auscultation.? No respiratory distress. HEART: Regular rate and rhythm. ? Normal peripheral pulses. ABDOMEN: Soft, nontender, nondistended. EXTREMITIES: Normal range of motion. Chronic bilateral lower extremity peripheral vascular disease prominent with dryness and scaling. Right lower extremity 2 circular surgical wounds with improving surrounding erythema, serosanguineous drainage present reaccumulation hematoma. SKIN: Warm dry normal color NEURO: Alert and oriented x3. PSYCH: Normal mood and affect DS: Data Data Completed and Pending Labs on day of discharge: Labs from last 24 hours 10/09/23 06:29 WBC 6.7 RBC 3.34 L Hgb 10.1 L Hct 32.3 L MCV 96.7 MCH 30.2 MCHC 31.3 L RDW 13.9 Plt Count 257 MPV 8.5 Immature Gran % (Auto) 1.0 H Neut % (Auto) 63.4 Lymph % (Auto) 23.8 [place] % (Auto) 8.2 Eos % (Auto) 3.0 Baso % (Auto) 0.6 Lymph # (Auto) 1.60 [place] # (Auto) 0.6 Eos # (Auto) 0.2 Baso # (Auto) 0.0 Abs Immat Gran (auto) 0.07 H Absolute Neuts (auto) 4.3 Absolute Nucleated RBC 0.000 Nucleated RBC % 0.0 PT 14.9 H INR 1.1 Sodium 140 Potassium 4.1 Chloride 106 Carbon Dioxide 29 Anion Gap 5 BUN 15 Creatinine 0.70 Estim Creat Clear Calc 109 Estimated GFR > 60 Glucose 105 Calcium 9.2 Magnesium 2.2 Total Bilirubin 1.5 H AST
== END 2023-10-09 15:00 | disposition home health service (06) | DRG 580 ==
LOC: ANHED 15:14 → ANH3MEDSUR 15:49
PROVIDERS: General Practice; Surgery; Admitting Provider Internal Medicine; Emergency Provider Preventive Medicine Aerospace Medicine; PCP Family Medicine; Visit Provider Nurse Practitioner
PROC: 0JCN0ZZ Extirpation of Matter from Right Lower Leg Subcutaneous Tissue and Fascia, Open Approach (ICD-10-PCS; principal; 2023-10-05 16:00)
DX: S80.11XA Contusion of right lower leg, initial encounter (principal); L03.116 Cellulitis of left lower limb; I73.9 Peripheral vascular disease, unspecified; I87.2 Venous insufficiency (chronic) (peripheral); K44.9 Diaphragmatic hernia without obstruction or gangrene; R74.8 Abnormal levels of other serum enzymes; W26.8XXA Contact with other sharp object(s), not elsewhere classified, initial encounter; Z79.01 Long term (current) use of anticoagulants; Z86.711 Personal history of pulmonary embolism; Z86.718 Personal history of other venous thrombosis and embolism; Z87.891 Personal history of nicotine dependence; Z95.828 Presence of other vascular implants and grafts
CPT/HCPCS: 36415; 73590; 80053; 80202; 83605; 83735; 84145; 85025; 85610; 85730; 86140; 87040; 87070; 87205; 96365; 96366; 96375; 96376; 97116; 97161; 97530; 99285; A9270; C9113; G0378; J0692; J1100; J1650; J2270; J2405; J2543; J2704; J3010; J3370; J7120

== ENCOUNTER 2023-10-11 11:32 | Outpatient (NON) | payer MEDICARE, SELFPAY ==
[2023-10-11 12:02] LABS: INR 1.2; Prothrombin Time 15.5 Seconds (11.1-14.7)
== END 2023-10-11 11:33 | disposition home or self-care (01) ==
LOC: HOME HLTH 11:37
PROVIDERS: PCP Family Medicine; Visit Provider Nurse Practitioner
DX: Z79.01 Long term (current) use of anticoagulants (principal)
CPT/HCPCS: 85610

== ENCOUNTER 2023-10-13 14:16 | Outpatient (RCR) | payer MEDICARE, SELFPAY ==
[2023-10-13 14:50] LABS: INR 1.4; Prothrombin Time 18.4 Seconds (11.1-14.7)
== END 2024-01-11 23:59 | disposition home or self-care (01) ==
LOC: HOME HLTH 14:16
PROVIDERS: Nurse Practitioner; PCP Family Medicine; Visit Provider Family Medicine
DX: Z51.81 Encounter for therapeutic drug level monitoring (principal); Z79.01 Long term (current) use of anticoagulants
CPT/HCPCS: 85610

== ENCOUNTER 2023-10-17 13:05 | Outpatient (RCR) | payer MEDICARE, SELFPAY ==
[2023-10-17 14:33] LABS: INR 1.6; Prothrombin Time 20.1 Seconds (11.1-14.7)
== END 2024-01-15 23:59 | disposition home or self-care (01) ==
LOC: HOME HLTH 13:05
PROVIDERS: PCP Family Medicine; Visit Provider Family Medicine
DX: S80.11XA Contusion of right lower leg, initial encounter (principal); L03.115 Cellulitis of right lower limb
CPT/HCPCS: 85610

== ENCOUNTER 2024-07-05 08:33 | Outpatient (CLI) | payer MEDICARE, SELFPAY ==
--- NOTE | ~2024-07-05 | XR_ITS ---
EXAMINATION: XR UGIAC w barium swallow DATE: 07/05/2024 09:31 INDICATION: Dysphagia with nausea and chest pressure. Hiatal hernia. TECHNIQUE: The patient drank thick barium, gas-producing crystals, and thin barium. Fluoroscopic spo t radiographs of the hypopharynx, esophagus, stomach and proximal small bowel were obtained. Fluorosc opy exposure time was minutes. A total of 918 fluoroscopic images of the esophagus, stomach, and prox imal small bowel were obtained. Fluoroscopy exposure time was 2.2 minutes. Total DAP was 21.5 Gycm^2. COMPARISON: None. FINDINGS: The pharynx is symmetric and without evidence of mass lesion or mucosal irregularity. The esophagus is normal without mass or stricture. Esophageal motility is normal. There is a large sliding-type hia johnna hernia with the entire stomach located above the level of the diaphragm with organoaxial volvulus . There was no gastroesophageal reflux with provocative maneuvers. The proximal small bowel is normal . IMPRESSION: 1. Large sliding-type hiatal hernia with organoaxial volvulus. Reviewed, dictated and finalized at location A. D [facility]
== END 2024-07-05 08:34 | disposition home or self-care (01) ==
PROVIDERS: PCP Family Medicine; Visit Provider Internal Medicine Gastroenterology
DX: R07.9 Chest pain, unspecified (principal); R13.10 Dysphagia, unspecified; K44.9 Diaphragmatic hernia without obstruction or gangrene
CPT/HCPCS: 74246

== ENCOUNTER 2025-01-03 10:01 | Outpatient (CLI) | payer MEDICARE, SELFPAY ==
--- NOTE | ~2025-01-03 | XR_ITS ---
XR chest 2V 01/03/2025 11:45 Indication: Diaphragmatic hernia without obstruction Procedure: PA and lateral views the chest Comparison: Comparison to multiple prior studies sequentially, with oldest reviewed study dated 03/04. Findings: There is an intrathoracic stomach with underlying compressive atelectasis. There are air-fl uid levels in the stomach. No significant effusion. Heart size normal. No edema or pneumothorax. Impression: 1: Intrathoracic stomach. Reviewed, dictated and finalized at location A. Impression: 1: Intrathoracic stomach.
--- OUTSIDE RECORDS SUMMARY | 2025-01-03 10:05 | XMS_ITS | Clinical Summary ---
Author Organization [facility] at the [facility] Center Address [address] [place] [address] Care Team Providers Care Program Advocate Name Role Phone Gemini Brewer MD Primary Care Provider [phone] Reggie Fuchs MD Unavailable [phone] Abel Stanley MD Unavailable [phone] Allergies No known active allergies Medications gabapentin (NEURONTIN) 100 mg capsule 04/16/2014Gabapentin, po solid 100 mg CapsulePOdailyCurrent Medication 014 Active warfarin (COUMADIN) 7.5 mg tablet 014 Active atorvastatin (LIPITOR) 40 mg tablet TK 1 T PO D 020 Active hydrocortison e 2.5 % ointment 020 Active betamethasone valerate (VALISONE) 0.1 % cream ZEESHAN EXT AA BID PRF RASH 10/11 02/12 020 Active triamcinolone (KENALOG) 0.1 % cream 020 Active furosemide (LASIX) 20 mg tablet Take 20 mg by mouth every morning 022 Active omeprazole (PriLOSEC) 20 mg capsule Take 1 capsule (20 mg total) by mouth 2 (two) times a day [address] (CYMBALTA) 60 mg capsule Take 1 capsule (60 mg total) by mouth daily 023 Active Livalo 2 mg tablet Take 1 tablet (2 mg total) by mouth daily 023 Active Active Problems Problem Noted Date Diagnosed Date Rash and nonspecific skin eruption 10/04/2019 Assessment & Plan (10/04/2019 1:52 PM CDT): Impression: Patient has a pruritic rash of his bilateral anterior thighs and also associated with his left calf. He states he is experiences in the past and was prescribed a Medrol Dosepak with relief of his symptoms. He is currently using topical triamcinolone with minimal relief. Plan: Medrol Dosepak. Venous hypertension of both lower extremities Assessment & Plan (02/02/2023 9:50 AM CDT): Continues to do well. Recommend continue with ongoing compression therapy exercise and leg elevation. No further workup needed follow up p.r.n.. Assessment & Plan (01/15/2022 1:54 PM CDT): Impression: Chronic venous hypertension with skin changes and ongoing edema. His edema is well controlled and patient is compliant with daily compression regimen. He has no open ulcerations. Plan: Continue current compression regimen. Also recommend utilizing his home compression pump therapy daily. Patient prefers to be followed on an annual basis. Patient follow-up in 1 year for re-evaluation with repeat lower extremity venous reflux studies. Assessment & Plan (11/15/2019 10:40 AM CDT): Impression: Stable venous hypertension of both lower extremities. His chronic edema is controlled. He has chronic skin discoloration/lipodermatosclerosis of both lower extremities which remains unchanged. He has no new open ulcerations. He has been very compliant with his daily compression regimen consisting of medical grade knee- high compression stockings 20-30 mm mercury in strength and home compression pump therapy daily. Plan: Continue daily compression regimen for ulcer prevention. Patient follow-up on as-needed basis. Assessment & Plan (10/04/2019 1:54 PM CDT): Impression: Chronic venous hypertension with hyperpigmentation lipodermatosclerosis of both lower extremities which is secondary to previous DVT of both lower extremities. His edema is controlled but is moderate at baseline. I feel he would benefit from additional compression with daily home compression pump therapy. He currently has no ulcers but has history of recurrent ulcerations and stasis dermatitis. Plan: Evaluation for home compression pump therapy. Continue daily compression regimen consisting of medical grade compression stockings 20 30 mm mercury in strength. Patient follow-up in 6 weeks for re-evaluation. 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 Patient remains on chronic daily therapeutic anticoagulation. He has been very compliant over the past several years with daily compression therapy consisting of medical grade knee-high compression stockings 30-40 mm mercury in strength. Plan: I discussed with the patient he would benefit from home compression pump therapy to assist in controlling his edema and for prevention of further stasis ulcerations and stasis dermatitis. Continue daily compression regimen in the interim while awaiting evaluation for home compression pump therapy. Assessment & Plan (07/30/2019 11:02 AM ROLLER PRINT TENDER): Patient has chronic venous hypertension bilateral lower extremities with unhealed ulcer left ankle. Continue daily skin care and knee-high compression therapy. Will obtain venous reflux study and follow up within 1 month. High cholesterol 07/30/2019 Assessment & Plan (01/15/2022 1:52 PM CDT): Hyperlipidemia: Stable chronic hyperlipidemia. Medications reviewed and I recommend continuing daily statin regimen as directed by patient's primary care physician. Assessment & Plan (11/15/2019 10:41 AM CDT): Impression: Stable hyperlipidemia on daily pharmacotherapy regimen. Plan: Continue current treatment as per PCP. Assessment & Plan (07/30/2019 11:03 AM ROLLER PRINT TENDER): Per patient cholesterol levels are well controlled he is tolerating statin therapy. Continue this treatment per primary care physician. Stasis dermatitis of both legs 07/30/2019 Assessment & Plan (08/23/2019 12:41 PM CDT): Impression: Recurrent stasis dermatitis of both lower extremities secondary to history of DVT and post phlebitic syndrome. He currently has no soft tissue infection on exam. He has been compliant with daily compression regimen consisting of medical grade compression stockings 20 30 mm mercury in strength. Plan: Recommended evaluation for home compression pump therapy for assistance with controlling his edema on a daily basis. Assessment & Plan (07/30/2019 11:03 AM ROLLER PRINT TENDER): Improving dermatitis calf level bilaterally. Continue topical triamcinolone. Other specified diseases of blood and blood-form ing organs 04/16/2014 Immunizations Immunization Administration Dates Next Due Pneumococcal Conjugate PCV 13 05/02/2018 Surgical History Surgery Date Site/Laterality Comments CHOLECYSTECTOMY 06/13/2014 - 06/12/2015 Medical History Medical History Date Comments Hyperlipidemia Family History Medical History Relation Name Comments Blood Clot Other Pulmonary embolism Other Relation Name Status Comments Other Social History Tobacco Use Types Packs/Day Years Used Date Smoking Tobacco: Former Cigarettes Q uit: 1980 Smokeless Tobacco: Never Tobacco Cessation:Counseling Given: Not Answered Alcohol Use Standard Drinks/Week Comments Yes 0 (1 standard drink = 0.6 oz pur e alcohol) AUDIT-C Answer Date Recorded Frequency of Alcohol Consumption 2-4 times a tue07/25/2019 Average Number of Drinks Not on file 020 Frequency of Binge Drinking Not on file 07/14 Sex and Gender Information Value Date Recorded Sex Assigned at Not on file Legal Sex Male 2:48 AM ROLLER PRINT TENDER Gender Identity Not on file Sexual Orientation Not on file Obstetrics History Last Filed Vital Signs Vital Sign Reading Time Taken Comments Blood Pressure 166/77 01/20/2023 9:12 AM CDT Pulse 61 01/20/2023 9:12 AM CDT Temperature 35.9 C (96.7 F) 10/04/2019 9:21 AM CDT Respiratory Rate - - Oxygen Saturation - - Inhaled Oxygen Concentration - - Weight 100.2 kg (221 lb) 01/20/2023 9:12 AM CDT Height 186.7 cm (6' 1.5) 01/20/2023 9:12 AM CDT Body Mass Index 28.76 01/20/2023 9:12 AM CDT Plan of Treatment Health Maintenance Due Date Last Done Comments Colon Cancer Screening-Colonoscopy 1954 Depression Screening 1954 Fall Risk Assessment 1954 Hepatitis C Screening 1954 DTaP/Tdap/Td Vaccine (1 - Tdap) 1965 Hepatitis B Screening 1972 Zoster Vaccine (1 of 2) 2004 Pneumococcal vaccine 65+ (2 of 2 - PPSV23) 05/02/2019 05/02/2018 Abdominal Aortic Aneurysm (AAA) Screen 2019 Well Visit 65+ 2019 Influenza Vaccine (Season Ended) 2025 Insurance MEDICARE ADVANTAGE MEDICARE ADVANTAGE Care Teams Program Advocate Relationship Specialty Start Date End Date Gemini Brewer MD [address] [place] [address] PCP - General 08/22/19 Reggie Fuchs MD [address] [address] 08/22/19 Abel Stanley MD [address] [address] [place] [address] Surgeon Vascular Surgery 01/10/23
--- OUTSIDE RECORDS SUMMARY | 2025-01-03 10:05 | XMS_ITS | Referral Summary ---
Author Organization [facility] at the [facility] Address [address] [place] [address] Care Team Providers Care Semiconductor Dies Loader Name Role Phone Gemini Brewer MD Primary Care Provider [phone] Reggie Fuchs MD Unavailable [phone] Abel Stanley MD Unavailable [phone] Allergies No known active allergies Medications gabapentin [...] therapy. Assessment & Plan (07/30/2019 11:02 AM SURGICAL TECHNOLOGY INSTRUCTOR): Patient has chronic venous hypertension bilateral lower [...] PCP. Assessment & Plan (07/30/2019 11:03 AM SURGICAL TECHNOLOGY INSTRUCTOR): Per patient cholesterol levels are well controlled [...] basis. Assessment & Plan (07/30/2019 11:03 AM SURGICAL TECHNOLOGY INSTRUCTOR): Improving dermatitis calf level bilaterally. Continue topical triamcinolone. Other specified diseases of blood and blood-form ing organs 04/16/2014 Immunizations Immunization Administration Dates Next Due Pneumococcal Conjugate PCV 13 05/02/2018 Social History Tobacco Use Types Packs/Day Years Used Date Smoking Tobacco: Former Cigarettes Q uit: 1979 Smokeless Tobacco: Never Tobacco Cessation:Counseling Given: Not [...] on file Legal Sex Male 2:48 AM SURGICAL TECHNOLOGY INSTRUCTOR Gender Identity Not on file Sexual Orientation Not on file Last Filed Vital Signs Vital Sign Reading [...] 01/20/2023 9:12 AM CDT Plan of Treatment Not on file Insurance [facility] MEDICARE ADVANTAGE [facility] Address: [address] [address] [facility] MEDICARE ADVANTAGE [facility] Address: [address] [address] Care Teams Semiconductor Dies Loader Relationship Specialty Start Date End Date Gemini Brewer MD [address] [place] [place] [address] PCP - General 08/22/19 Reg[place] [place] [address] 08/22/19 Abel Stanley MD [address] [place] [address] [address] [place] [address] Surgeon Vascular Surgery 01/10/23
--- NOTE | 2025-01-03 11:22 | ECG_ITS ---
Test Date: 2025-01-03 11:37:01 Measurements Intervals Leonard Rate: 71 P: 29 CT: 153 QRS: 8 QRSD: 98 T: 32 QT: 401 QTc: 438 Interpretive Statements SINUS RHYTHM WITH OCCASIONAL SUPRAVENTRICULAR PREMATURE COMPLEXES WARNING: DATA QUALITY MAY AFFECT INTERPRETATION No previous ECG available for comparison Electronically Signed On 01-04-2025 15:50:12 CDT by Kalen Ramirez M.D.
[2025-01-03 11:49] LABS: Hematocrit 39.8 % (42.0-52.0); Hemoglobin 13.1 g/dL (14.0-18.0); Immature Granulocyte Percent A 0.5 % (0-0.5); Lymphocytes Absolute Auto 1.64 K/mm3 (0.9-3.2); Mean Corpuscular HGB Conc 32.9 g/dl (32-36); Mean Corpuscular Hemoglobin 30.5 pg (26-34); Mean Corpuscular Volume 92.6 fl (80-100); Nucleated Red Blood Cells Absolute Auto 0.000 K/mm3 (0.0-0.012); Nucleated Red Blood Cells Perc 0.0 % (0.0-0.2); Platelet Count Result 181 k/mm3 (150-375); Red Blood Count 4.30 M/mm3 (4.6-6.20); White Blood Count 6.3 K/mm3 (4.5-10.0)
[2025-01-03 12:07] LABS: INR 3.8; Prothrombin Time 36.0 Seconds (11.1-14.7)
[2025-01-03 12:08] LABS: Partial Thromboplastin Time 58.0 Seconds (22.3-36.8)
[2025-01-03 12:13] LABS: Anion Gap 8 mmol/L (4-12); Blood Urea Nitrogen 23 mg/dL (9-20); Calcium 9.3 mg/dL (8.4-10.2); Carbon Dioxide 25 mmol/L (22-30); Chloride 104 mmol/L (98-107); Estimated Glomerular Filt Rate > 60; Glucose 97 mg/dL (65-110); Potassium 4.6 mmol/L (3.4-5.0); Sodium 137 mmol/L (137-145)
== END 2025-01-03 10:02 | disposition home or self-care (01) ==
PROVIDERS: Anesthesiology; PCP Family Medicine; Visit Provider Surgery
DX: Z01.818 Encounter for other preprocedural examination (principal); K44.9 Diaphragmatic hernia without obstruction or gangrene; Z51.81 Encounter for therapeutic drug level monitoring
CPT/HCPCS: 36415; 71046; 80048; 85025; 85610; 85730; 86850; 86900; 86901; 93005

== ENCOUNTER 2025-01-10 09:58 | Outpatient (CLI) | payer MEDICARE, SELFPAY ==
--- OUTSIDE RECORDS SUMMARY | 2025-01-10 10:11 | XMS_ITS | Referral Summary ---
Author Organization [facility] at the [facility] Office [facility] Address [address] [place] [address] Care Team Providers Care Complaint Specialist Name Role Phone Gemini Brewer MD Primary Care Provider [phone] Reggie Fuchs MD Unavailable [phone] Abel Stanley MD Unavailable [phone] Allergies No known active allergies Medications gabapentin [...] therapy. Assessment & Plan (07/30/2019 11:02 AM TIRE CURER): Patient has chronic venous hypertension bilateral lower [...] PCP. Assessment & Plan (07/30/2019 11:03 AM TIRE CURER): Per patient cholesterol levels are well controlled [...] basis. Assessment & Plan (07/30/2019 11:03 AM TIRE CURER): Improving dermatitis calf level bilaterally. Continue topical [...] on file Legal Sex Male 2:48 AM TIRE CURER Gender Identity Not on file Sexual Orientation [...] Plan of Treatment Not on file Insurance [facility] MEDICARE ADVANTAGE [facility] MEDICARE ADVANTAGE Care Teams Complaint Specialist Relationship Specialty Start Date End Date Gemini Brewer MD [address] [place] [address] PCP - General 08/22/19 Reggie Fuchs MD [place] [address] 08/22/19 Abel Stanley MD [address] [place] [address] [address] [place] [address] Surgeon Vascular Surgery 01/10/23
--- OUTSIDE RECORDS SUMMARY | 2025-01-10 10:11 | XMS_ITS | Clinical Summary ---
Author Organization [facility] at the [facility] Office Center Address [address] [place] [address] Care Team Providers Care Transportation Dispatcher Name Role Phone Gemini Brewer MD Primary Care Provider [phone] Reggie Fuchs MD Unavailable [phone] Abel Stanley MD Unavailable [phone] Allergies No known active allergies Medications gabapentin [...] therapy. Assessment & Plan (07/30/2019 11:02 AM MEDICAL TYPIST): Patient has chronic venous hypertension bilateral lower [...] PCP. Assessment & Plan (07/30/2019 11:03 AM MEDICAL TYPIST): Per patient cholesterol levels are well controlled [...] basis. Assessment & Plan (07/30/2019 11:03 AM MEDICAL TYPIST): Improving dermatitis calf level bilaterally. Continue topical [...] on file Legal Sex Male 2:48 AM MEDICAL TYPIST Gender Identity Not on file Sexual Orientation [...] 2019 Well Visit 65+ 2019 Influenza Vaccine (#1) 2025 Insurance MEDICARE ADVANTAGE MEDICARE ADVANTAGE Care Teams Transportation Dispatcher Relationship Specialty Start Date End Date Gemini Brewer MD [address] [place] [address] PCP - General 08/22/19 Reggie Fuchs MD [address] [place] [address] 08/22/19 Abel Stanley MD [address] [facility] [facility] [address] [place] [address] Surgeon Vascular Surgery 01/10/23
[2025-01-10 10:42] LABS: INR 1.5; Prothrombin Time 17.7 Seconds (11.1-14.7)
[2025-01-10 10:43] LABS: Partial Thromboplastin Time 35.4 Seconds (22.3-36.8)
== END 2025-01-10 09:59 | disposition home or self-care (01) ==
LOC: ANHSURGERY 10:02
PROVIDERS: PCP Family Medicine; Visit Provider Surgery
DX: D68.9 Coagulation defect, unspecified (principal)
CPT/HCPCS: 36415; 85610; 85730